=== PATIENT | female | born 1965 | race Caucasian/White ===

== ENCOUNTER 2017-04-29 08:00 | Outpatient (CLI) | payer MEDICAID ==
[2017-04-29 19:08] LABS: BASOPHILS % (AUTO) 0.3 %; EOSINOPHILS # (AUTO) 0.2 10^3/uL (0.0-0.7); EOSINOPHILS % (AUTO) 2.3 %; HGB - HEMOGLOBIN 13.2 g/dL (12.0-16.0); LYMPHOCYTES # (AUTO) 2.2 10^3/uL (1.5-3.5); LYMPHOCYTES % (AUTO) 31.8 %; MEAN CORPUSCULAR HEMOGLOBIN 28.4 pg (27.0-31.0); MEAN CORPUSCULAR HGB CONC 32.5 g/dL (32.0-36.0); MEAN CORPUSCULAR VOLUME 87.5 fL (81.0-99.0); MEAN PLATELET VOLUME 8.3 fL (7.9-10.8); MONOCYTES # (AUTO) 0.5 10^3/uL (0.0-1.0); MONOCYTES % (AUTO) 6.8 %; NEUTROPHILS # (AUTO) 4.1 10^3/uL (1.5-6.6); NEUTROPHILS % (AUTO) 58.8 %; PLT - PLATELET COUNT 273 10^3/uL (130-450); RED BLOOD COUNT 4.65 10^6/uL (4.20-5.40); RED CELL DISTRIBUTION WIDTH 13.6 % (12.0-15.0)
[2017-04-29 19:43] LABS: ALBUMIN 4.1 g/dL (3.2-5.5); ALBUMIN/GLOBULIN RATIO 1.5 (1.0-2.2); ALKALINE PHOSPHATASE 75 IU/L (42-121); ALT ALANINE AMINOTRANSFERASE 16 IU/L (10-60); AST ASPARTATE AMINOTRANSFERASE 16 IU/L (10-42); BILIRUBIN,TOTAL 0.3 mg/dL (0.2-1.0); BUN - BLOOD UREA NITROGEN 12 mg/dL (6-20); CALCIUM 9.7 mg/dL (8.5-10.3); CARBON DIOXIDE - CO2 26 mmol/L (21-32); CHLORIDE 102 mmol/L (101-111); CHOL/HDL RATIO 2.8 (<4.4); CHOLESTEROL 190 mg/dL; CREATININE 0.7 mg/dL (0.4-1.0); GFR - MDRD 89 (>89); GLUCOSE 88 mg/dL (70-100); HDL CHOLESTEROL 68 mg/dL; LDL CHOLESTEROL,CALCULATED 111 mg/dL; LDL/HDL RATIO 1.6 (<4.4); SODIUM 140 mmol/L (135-145); TOTAL PROTEIN 6.8 g/dL (6.7-8.2); VLDL CHOLESTEROL 11 mg/dL
== END 2017-04-29 08:01 | disposition home or self-care (01) ==
LOC: LAB.N 08:00
PROVIDERS: ATTEND Nurse Practitioner Gerontology
DX: Z13.9 Encounter for screening, unspecified (principal)
CPT/HCPCS: 36415; 80053; 80061; 83721; 84443; 85025

== ENCOUNTER 2017-05-25 05:25 | Emergency (ER) | payer MEDICAID ==
--- NOTE | 2017-05-25 06:35 | ED Physician Documentation ---
History of Present Illness - Stated complaint Stated Complaint: R KNEE PAIN - Chief complaint Chief Complaint: Ext Problem - History obtained from History obtained from: Patient - History of Present Illness Timing: How many days ago (5) Improved by: rest Worsened by: movement, weight-bearing - Additonal information Additional information: c/o 5 days of right knee pain. she had been gardening earlier that day, but she does not recall injury. Review of Systems Skin: denies: Rash Musculoskeletal: reports: Joint pain, Pain with weight bearing. 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 - Present Medications Home Medications: Ambulatory Orders Medication Instructions Recorded Confirmed traMADol [Ultram] 50 - 100 mg PO Q4-6H PRN #20 tablet 05/25/17 - Allergies Allergies/Adverse Reactions: Allergies Allergy/AdvReac Type Severity Reaction Status Date / Time No Known Drug Allergies Allergy Verified 05/25/17 05:43 - Social History Does the pt smoke?: Yes Smoking Status: Current every day smoker Does the pt drink ETOH?: No Does the pt have substance abuse?: No - Immunizations Immunizations are current?: Yes - POLST Patient has POLST: No PD ED PE NORMAL - Vitals Vital signs reviewed: Yes - General General: Alert and oriented X 3, No acute distress, Well developed/nourished - Derm Derm: Normal color, Warm and dry, No rash - Extremities Extremities: No deformity, No tenderness to palpate, Normal ROM s pain, No edema , No calf tenderness / cord Results - Vitals Vitals: Oxygen O2 Source Room air PD MEDICAL DECISION MAKING - ED course Complexity details: considered differential, d/w patient ED course: atraumatic right knee pain with unremarkable physical exam. Patient says she has had similar problems with the same knee and has had ultrasound and MRI ( prior to moving to [facility]), without specific diagnosis. She says ultram has worked well on this pain in the past Departure - Departure Disposition: Home, Self Care Clinical Impression: Knee pain, right Qualifiers: Chronicity: acute Qualified Code(s): M25.561 - Pain in right knee Condition: Good Instructions: ED Knee Pain [facility]O Follow-Up: [facility] [Provider Group] [facility] [Provider Group] Prescriptions: traMADol [Ultram] 50 - 100 mg PO Q4-6H PRN #20 tablet PRN Reason: Pain Discharge Date/Time: 05/25/17 07:10
[2017-05-25] MEDS ORDERED: traMADol 50 MG TABLET PO STA (06:57)
[2017-05-25 07:13] VITALS: BP 128/71
== END 2017-05-25 07:10 | disposition home or self-care (01) ==
LOC: ED 05:25
DX: M25.561 Pain in right knee (principal); F17.200 Nicotine dependence, unspecified, uncomplicated
CPT/HCPCS: 99283; A9270

== ENCOUNTER 2017-06-28 16:12 | Emergency (ER) | payer MEDICAID ==
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
[2017-06-28] MEDS ORDERED: traMADol 50 MG TABLET PO STA (16:55)
[2017-06-28 16:59] VITALS: BP 113/61
== END 2017-06-28 17:04 | disposition home or self-care (01) ==
LOC: ED 16:12
DX: M25.561 Pain in right knee (principal); F17.200 Nicotine dependence, unspecified, uncomplicated
CPT/HCPCS: 99283; A9270

== ENCOUNTER 2017-07-31 11:56 | Emergency (ER) | payer MEDICAID ==
--- NOTE | 2017-07-31 12:47 | ED Physician Documentation ---
PD HPI BACK PAIN - Stated complaint Stated Complaint: BILAT LEG PX - Chief complaint Chief Complaint: General - History obtained from History obtained from: Patient - History of Present Illness Timing - onset: How many months ago (1-2 months of pain in right knee and calf. Denies back nor hip pain. Has had some pains in there for years but consistent now. Seen by PCP and arranged therapy and Rx meds. Patient says ROM and muscle use PT makes the pain worse. Not improved with meds Rx.) Timing - details: Gradual onset, Still present, Waxing and waning Location: Other (not really hurting in back. Has pain right posterolateral knee and upper calf.) Quality: Pain, Aching Associated symptoms: No: Fever, Weakness, Numbness Worsened by: Palpation, Other (pain with walking and also had twisting of ankle few weeks ago, which has caused pain in left lower leg/ankle due to changed gait.) Contributing factors: No: Trauma Similar symptoms before: No diagnosis Recently seen: Clinic Review of Systems Constitutional: denies: Fever, Chills, Myalgias Skin: denies: Rash, Lesions Musculoskeletal: denies: Back pain Neurologic: denies: Focal weakness, Numbness PD PAST MEDICAL HISTORY - Past Medical History Past Medical History: Yes - Past Surgical History 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 - Present Medications Home Medications: Ambulatory Orders Medication Instructions Recorded Confirmed Acetaminophen [Tylenol] 650 mg PO TID #60 tab 07/31/17 Tramadol HCl 50 mg PO Q6H PRN #25 tablet 07/31/17 - Allergies Allergies/Adverse Reactions: Allergies Allergy/AdvReac Type Severity Reaction Status Date / Time No Known Drug Allergies Allergy Verified 07/31/17 12:10 - Social History Does the pt smoke?: Yes Smoking Status: Current every day smoker Does the pt drink ETOH?: No Does the pt have substance abuse?: No - Immunizations Immunizations are current?: Yes - POLST Patient has POLST: No PD ED PE NORMAL - Vitals Vital signs reviewed: Yes - General General: Alert and oriented X 3, Well developed/nourished - Neck Neck: Supple, no meningeal sign, No adenopathy - Cardiac Cardiac: RRR, No murmur - Respiratory Respiratory: Clear bilaterally - Abdomen Abdomen: Soft, Non tender - Back Back: No CVA TTP, No spinal TTP - Derm Derm: Normal color, Warm and dry, No rash - Extremities Extremities: No edema, Other (right posterior knee and lateral knee with some tenderness, but no rash nor swelling. ) - Neuro Neuro: Alert and oriented X 3, No motor deficit, No sensory deficit, Normal speech Results - Vitals Vitals: Oxygen O2 Source Room air PD MEDICAL DECISION MAKING - Sepsis Event Vital Signs: Oxygen O2 Source Room air Departure - Departure Disposition: Home, Self Care Clinical Impression: Right leg pain Condition: Stable Record reviewed to determine appropriate education?: Yes Follow-Up: [facility] [Provider Group] Prescriptions: Acetaminophen [Tylenol] 650 mg PO TID #60 tab Tramadol HCl 50 mg PO Q6H PRN #25 tablet PRN Reason: Pain Comments: Tylenol 3 times a day for the pain. Add tramadol 3 times a day if needed for worse pain. Continue with your primary care and the physical therapy. Follow- up with orthopedics regarding another opinion on the knee and leg pain. Discharge Date/Time: 07/31/17 13:32
[2017-07-31] MEDS ORDERED: traMADol 50 MG TABLET PO STA (13:03)
[2017-07-31 13:17] VITALS: BP 115/65
== END 2017-07-31 13:32 | disposition home or self-care (01) ==
LOC: ED 11:56
DX: F17.200 Nicotine dependence, unspecified, uncomplicated (principal); M79.604 Pain in right leg
CPT/HCPCS: 99283; A9270

== ENCOUNTER 2018-06-01 14:39 | Emergency (ER) | payer MEDICAID ==
[2018-06-01 15:13] LABS: HGB - HEMOGLOBIN 13.6 g/dL (12.0-16.0); MEAN CORPUSCULAR HGB CONC 32.7 g/dL (32.0-36.0); MEAN CORPUSCULAR VOLUME 88.7 fL (81.0-99.0); MEAN PLATELET VOLUME 7.5 fL (7.9-10.8); NEUTROPHILS % (AUTO) 79.3 %; PLT - PLATELET COUNT 312 10^3/uL (130-450); RED BLOOD COUNT 4.67 10^6/uL (4.20-5.40); RED CELL DISTRIBUTION WIDTH 12.8 % (12.0-15.0); WHITE BLOOD COUNT 12.6 x10^3/uL (4.8-10.8)
[2018-06-01 15:14] LABS: BASOPHILS # (AUTO) 0.1 10^3/uL (0.0-0.1); BASOPHILS % (AUTO) 0.6 %; EOSINOPHILS # (AUTO) 0.1 10^3/uL (0.0-0.7); EOSINOPHILS % (AUTO) 0.7 %; LYMPHOCYTES # (AUTO) 1.8 10^3/uL (1.5-3.5); LYMPHOCYTES % (AUTO) 14.6 %; MONOCYTES # (AUTO) 0.6 10^3/uL (0.0-1.0); MONOCYTES % (AUTO) 4.8 %
[2018-06-01 15:26] LABS: ALBUMIN 4.1 g/dL (3.2-5.5); ALBUMIN/GLOBULIN RATIO 1.4 (1.0-2.2); BILIRUBIN,TOTAL 0.4 mg/dL (0.2-1.0); CALCIUM 9.3 mg/dL (8.5-10.3); CREATININE 0.6 mg/dL (0.4-1.0); TOTAL PROTEIN 7.1 g/dL (6.7-8.2)
[2018-06-01] MEDS ORDERED: HYDROmorphone 1 MG/ML CARPUJECT IVP STA (15:33)
[2018-06-01] MEDS ORDERED: ONDANSETRON 4 MG/2 ML VIAL IVP STA (15:33)
--- NOTE | 2018-06-01 15:35 | ED Physician Documentation ---
PD HPI CHEST PAIN - Stated complaint Stated Complaint: SOA - Chief complaint Chief Complaint: Resp - History obtained from History obtained from: Patient - History of Present Illness Timing - onset: Today (History is somewhat limited due to histrionic behavior. She suddenly had central and left upper quadrant pain radiating to the chest 2 PM today while gardening. She has a history of appendectomy and cholecystectomy. She smokes marijuana several times a week but not daily.) Review of Systems Ten Systems: 10 systems reviewed and negative Constitutional: denies: Fever, Chills Cardiac: reports: Chest pain / pressure Respiratory: reports: Dyspnea GI: reports: Abdominal Pain. 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 - Present Medications Home Medications: Ambulatory Orders Medication Instructions Recorded Confirmed Acetaminophen [Tylenol] 650 mg PO TID #60 tab 07/31/17 Tramadol HCl 50 mg PO Q6H PRN #25 tablet 07/31/17 - Allergies Allergies/Adverse Reactions: Allergies Allergy/AdvReac Type Severity Reaction Status Date / Time No Known Drug Allergies Allergy Verified 06/01/18 14:47 - Social History Does the pt smoke?: Yes Smoking Status: Current every day smoker Does the pt drink ETOH?: No Does the pt have substance abuse?: Yes Substance Use and Type: Marijuana - Immunizations Immunizations are current?: Yes - POLST Patient has POLST: No PD ED PE NORMAL - Vitals Vital signs reviewed: Yes - General General: Alert and oriented X 3, Other (Hyperventilating with histrionic behavior) - HEENT HEENT: PERRL, EOMI - Neck Neck: Supple, no meningeal sign, No bony TTP - Cardiac Cardiac: RRR, No murmur - Respiratory Respiratory: No respiratory distress, Clear bilaterally - Abdomen Abdomen: Other (Quite tender throughout which she seems distractible from) - Back Back: No CVA TTP, No spinal TTP - Derm Derm: Normal color, Warm and dry - Extremities Extremities: No deformity, No tenderness to palpate - Neuro Neuro: Alert and oriented X 3, Normal speech Results - Vitals Vitals: Vital Signs - 24 hr 06/01/18 06/01/18 06/01/18 14:45 15:30 16:20 Temperature 35.8 C L Heart Rate 82 101 H 85 Respiratory 26 H 22 18 Rate Blood Pressure 101/72 119/85 H 128/112 H O2 Saturation 100 100 97 06/01/18 16:30 Temperature Heart Rate 95 Respiratory 14 Rate Blood Pressure 133/87 H O2 Saturation 98 Oxygen O2 Source Room air - EKG (time done) 1455 Rate: Rate (enter#) (63) Rhythm: NSR [place]: Normal Intervals: Normal [place] QRS: Normal Ischemia: Normal ST segments Computer interpretation: Agree with computer - Labs Labs: Laboratory Tests 06/01/18 06/01/18 06/01/18 15:05 15:05 15:05 WBC 12.6 H RBC 4.67 Hgb 13.6 Hct 41.4 MCV 88.7 MCH 29.0 MCHC 32.7 RDW 12.8 Plt Count 312 MPV 7.5 L Neut # (Auto) 10.0 H Lymph # (Auto) 1.8 [place] # (Auto) 0.6 Eos # (Auto) 0.1 Baso # (Auto) 0.1 Absolute Nucleated RBC 0.00 Nucleated RBC % 0.0 D-Dimer < 200.0 L VBG pH VBG pCO2 VBG pO2 VBG HCO3 VBG Total CO2 VBG O2 Saturation VBG Base Excess Sodium 142 Potassium 3.5 Chloride 106 Carbon Dioxide 27 Anion Gap 9.0 BUN 16 Creatinine 0.6 Estimated GFR (MDRD) 105 Glucose 102 H Calcium 9.3 Total Bilirubin 0.4 AST 44 H ALT 31 Alkaline Phosphatase 81 Troponin I Total Protein 7.1 Albumin 4.1 Globulin 3.0 Albumin/Globulin Ratio 1.4 Lipase 22 Urine Color Urine Clarity Urine pH Ur Specific [place] Urine Protein Urine Glucose (UA) Urine Ketones Urine Occult Blood Urine Nitrite Urine Bilirubin Urine Urobilinogen Ur Leukocyte Esterase Urine RBC Urine WBC Ur Squamous Epith Cells Amorphous Sediment Urine Bacteria Ur Microscopic Review Urine Culture Comments Urine HCG, Qual 06/01/18 06/01/18 06/01/18 15:05 15:40 16:40 WBC RBC Hgb Hct MCV MCH MCHC RDW Plt Count MPV Neut # (Auto) Lymph # (Auto) [place] # (Auto) Eos # (Auto) Baso # (Auto) Absolute Nucleated RBC Nucleated RBC % D-Dimer VBG pH 7.454 H VBG pCO2 35.6 L VBG pO2 30.9 VBG HCO3 24.4 VBG Total CO2 25.5 VBG O2 Saturation 68.7 VBG Base Excess 0.9 Sodium Potassium Chloride Carbon Dioxide Anion Gap BUN Creatinine Estimated GFR (MDRD) Glucose Calcium Total Bilirubin AST ALT Alkaline Phosphatase Troponin I < 0.04 Total Protein Albumin Globulin Albumin/Globulin Ratio Lipase Urine Color YELLOW Urine Clarity HAZY Urine pH 8.0 H Ur Specific [place] 1.015 Urine Protein NEGATIVE Urine Glucose (UA) NEGATIVE Urine Ketones NEGATIVE Urine Occult Blood NEGATIVE Urine Nitrite NEGATIVE Urine Bilirubin NEGATIVE Urine Urobilinogen 0.2 (NORMAL) Ur Leukocyte Esterase NEGATIVE Urine RBC None Seen Urine WBC 0-3 Ur Squamous Epith Cells RARE Squamous Amorphous Sediment Moderate Urine Bacteria None Seen Ur Microscopic Review INDICATED Urine Culture Comments NOT INDICATED Urine HCG, Qual 06/01/18 16:40 WBC RBC Hgb Hct MCV MCH MCHC RDW Plt Count MPV Neut # (Auto) Lymph # (Auto) [place] # (Auto) Eos # (Auto) Baso # (Auto) Absolute Nucleated RBC Nucleated RBC % D-Dimer VBG pH VBG pCO2 VBG pO2 VBG HCO3 VBG Total CO2 VBG O2 Saturation VBG Base Excess Sodium Potassium Chloride Carbon Dioxide Anion Gap BUN Creatinine Estimated GFR (MDRD) Glucose Calcium Total Bilirubin AST ALT Alkaline Phosphatase Troponin I Total Protein Albumin Globulin Albumin/Globulin Ratio Lipase Urine Color Urine Clarity Urine pH Ur Specific [place] 1.015 Urine Protein Urine Glucose (UA) Urine Ketones Urine Occult Blood Urine Nitrite Urine Bilirubin Urine Urobilinogen Ur Leukocyte Esterase Urine RBC Urine WBC Ur Squamous Epith Cells Amorphous Sediment Urine Bacteria Ur Microscopic Review Urine Culture Comments Urine HCG, Qual NEGATIVE - Rads (name of study) CT A/P Radiology: EMP read contemporaneously (Dilated fluid-filled stomach without other acute abnormality) PD MEDICAL DECISION MAKING - ED course ED course: 52-year-old woman presents histrionic with abdominal pain, thorough work-up was undertaken but she improved a lot with medications here and was pain-free by the time of discharge. She did have a dilated stomach and was offered Reglan but prefers to use herbs at home. Departure - Departure Disposition: 01 Home, Self Care Clinical Impression: Abdominal pain Qualifiers: Abdominal location: generalized Qualified Code(s): R10.84 - Generalized abdominal pain Condition: Good Record reviewed to determine appropriate education?: Yes Instructions: ED Abdominal Pain Unkn Cause Comments: Call your doctor to arrange a follow-up appointment, make the next available appointment. In the interim, return anytime if worse or if new symptoms develop.
[2018-06-01 15:57] LABS: VBG PCO2 35.6 mmHg (41-51); VBG PH 7.454 (7.31-7.41)
[2018-06-01 15:58] LABS: VBG BASE EXCESS 0.9 mmol/L (-2 - +2); VBG PO2 30.9 mmHg (25-47); VBG TOTAL CO2 25.5 mmol/L (24-29)
[2018-06-01] MEDS ORDERED: LORazepam 2 MG/ML VIAL IVP STA (16:00)
--- NOTE | 2018-06-01 16:38 | XRAY Report ---
Reason: chest /abd pain Procedure Date: 06/01/2018 Accession Number: [id number] / [id number] Procedure: XR - Chest 1 View X-Ray CPT Code: 51434 FULL RESULT: EXAM: CHEST RADIOGRAPHY EXAM DATE: 06/01/2018 04:04 PM. CLINICAL HISTORY: Chest /abd pain. COMPARISON: Abdomen radiographs 08/13/2006. TECHNIQUE: 1 view. FINDINGS: Cardiac leads overlie the chest. Heart size is normal. Calcified plaques in the thoracic aorta. No consolidation, pleural effusion, or pneumothorax. IMPRESSION: No acute cardiopulmonary findings. RADIA
[2018-06-01 16:54] LABS: BILIRUBIN,URINE NEGATIVE (NEGATIVE); GLUCOSE, URINE (UA) NEGATIVE (NEGATIVE); KETONES,URINE (UA) NEGATIVE (NEGATIVE); LEUKOCYTE ESTERASE, URINE NEGATIVE (NEGATIVE); NITRITE,URINE NEGATIVE (NEGATIVE); OCCULT BLOOD,URINE NEGATIVE (NEGATIVE); PROTEIN,URINE NEGATIVE (NEGATIVE); UROBILINOGEN,URINE 0.2 (NORMAL) E.U./dL (NORMAL)
[2018-06-01 17:01] LABS: CLARITY,URINE HAZY (CLEAR); HCG UR QUAL NEGATIVE
[2018-06-01 17:07] LABS: AMORPHOUS SEDIMENT,UR Moderate /LPF; BACTERIA,URINE None Seen /HPF (None Seen); RBC,URINE None Seen /HPF (0-5); SQUAMOUS EPITHELIAL CELL,UR RARE Squamous (<= Few)
[2018-06-01] MEDS ORDERED: IOVERSOL 320 100 ML VIAL IVP ONE ×2 (17:08→18:49)
--- NOTE | 2018-06-01 17:45 | CT Report ---
Reason: IV only, diffuse abd pain Procedure Date: 06/01/2018 Accession Number: [id number] / [id number] Procedure: CT - Abdomen/Pelvis W CPT Code: FULL RESULT: EXAM: CT ABDOMEN AND PELVIS EXAM DATE: 06/01/2018 05:23 PM. CLINICAL HISTORY: IV only, diffuse abd pain. COMPARISONS: ABD/PEL 08/13/2006 4:31 PM. TECHNIQUE: Routine helical CT imaging was performed through the abdomen and pelvis. IV contrast: ISOVUE 300 100mL. Enteric contrast: No. Reconstructions: Coronal and sagittal. In accordance with CT protocol optimization, one or more of the following dose reduction techniques were utilized for this exam: automated exposure control, adjustment of mA and/or KV based on patient size, or use of iterative reconstructive technique. FINDINGS: Lung Bases: Unremarkable. Liver: The liver is normal in size and contour. There is a 7 mm hypodensity in the inferior right lobe of the liver which is too small to characterize. Liver vessels are patent. Gallbladder/Bile Ducts: Gallbladder surgically absent. Spleen: Normal. Pancreas: Normal. Adrenal Glands: Normal. Kidneys: Normal. No masses or hydronephrosis. Peritoneal Cavity/Bowel: Stomach is mildly distended with fluid. The small bowel is normal in caliber without a transition zone. The colon is nondilated. No free air or pneumatosis. No abscess. Pelvic Organs: Uterus is anteverted. Urinary bladder appears unremarkable. Vasculature: No aneurysms or other significant abnormality. Bones: No significant abnormality. Other: None. IMPRESSION: 1. Stomach is mildly dilated with fluid. The small bowel and colon appear unremarkable. 2. No other localizing inflammatory process or CT finding to explain abdominal pain. 3. Previous cholecystectomy. RADIA
[2018-06-01] MEDS ORDERED: METOCLOPRAMIDE 10 MG/2 ML VIAL IVP STA (17:49)
[2018-06-01 18:09] VITALS: BP 132/78
== END 2018-06-01 18:12 | disposition home or self-care (01) ==
LOC: ED 14:39
DX: R10.84 Generalized abdominal pain (principal); F17.200 Nicotine dependence, unspecified, uncomplicated
CPT/HCPCS: 36415; 71045; 74177; 80053; 81001; 81025; 82803; 83690; 84484; 85025; 85379; 93005; 96374; 96375; 99283; J1170; Q9967; 81003; 87086

== ENCOUNTER 2020-09-06 15:16 | Emergency (ER) | payer MEDICAID ==
[2020-09-06] MEDS ORDERED: ACETAMINOPHEN 325 MG TABLET PO STA (15:41)
[2020-09-06] MEDS ORDERED: SODIUM CHLORIDE 0.9% 1,000 ML IV STA (15:41)
--- NOTE | 2020-09-06 15:59 | ED Physician Documentation ---
History of Present Illness - Stated complaint Stated Complaint: WEAKNESS, BACK PX - Chief complaint Chief Complaint: Abd Pain - History obtained from History obtained from: Patient - Additonal information Additional information: Patient comes emergency department chief complaint of body aches, right-sided abdominal pain, fever, chills, shortness of breath, right ear pain, and general malaise. She states it all started yesterday. She denies any sick contacts. And she states that it feels a lot like when she had mono when she was 14. Patient has had a sore throat and a sore mandible, especially on the right. Patient states she is not immunized for Covid. She has not had any known Covid exposures. Review of Systems Ten Systems: 10 systems reviewed and negative Constitutional: reports: Fever, Chills Eyes: reports: Reviewed and negative Ears: reports: Reviewed and negative Nose: reports: Reviewed and negative Throat: reports: Sore throat Cardiac: reports: Reviewed and negative Respiratory: reports: Dyspnea. denies: Cough GI: reports: Abdominal Pain. denies: Nausea, Vomiting : reports: Reviewed and negative Skin: reports: Reviewed and negative Musculoskeletal: reports: Reviewed and negative Neurologic: reports: Headache Psychiatric: reports: Reviewed and negative Endocrine: reports: Reviewed and negative Immunocompromised: reports: Reviewed and negative PD PAST MEDICAL HISTORY - Past Medical History Past Medical History: No Cardiovascular: None Respiratory: None Neuro: None Endocrine/Autoimmune: None GI: None PHYSICAL THERAPY TECHNICIAN: None : None HEENT: None Psych: None Musculoskeletal: None Derm: None - Past Surgical History Past Surgical History: Yes /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: No Does the pt have substance abuse?: Yes - Immunizations Immunizations are current?: Yes - POLST Patient has POLST: No PD ED PE NORMAL - Vitals Vital signs reviewed: Yes - General General: Alert and oriented X 3, No acute distress - HEENT HEENT: Atraumatic, PERRL, EOMI, Ears normal, Pharynx benign - Neck Neck: Supple, no meningeal sign - Cardiac Cardiac: No murmur, Strong equal pulses, Other (Regular rate, tachycardic.) - Respiratory Respiratory: No respiratory distress, Clear bilaterally - Abdomen Abdomen: Soft, Non tender, Non distended - Back Back: No CVA TTP - Derm Derm: Normal color, Warm and dry, No rash - Extremities Extremities: No deformity, No edema, No calf tenderness / cord - Neuro Neuro: Alert and oriented X 3, factory clerk 2-12 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, Normal speech - Psych Psych: Normal mood, Normal affect Results - Vitals Vitals: Vital Signs - 24 hr 09/06/20 09/06/20 15:23 16:26 Temperature 38.1 C H Heart Rate 120 H 104 H Respiratory 18 17 Rate Blood Pressure 139/92 H 139/64 H O2 Saturation 94 95 Oxygen O2 Source Room air - Labs Labs: Laboratory Tests 09/06/20 09/06/20 09/06/20 16:03 16:03 16:03 WBC 9.6 RBC 4.43 Hgb 13.1 Hct 39.7 MCV 89.6 MCH 29.6 MCHC 33.0 RDW 12.1 Plt Count 197 MPV 9.7 Neut # (Auto) 7.9 H Lymph # (Auto) 0.6 L [place] # (Auto) 1.0 Eos # (Auto) 0.1 Baso # (Auto) 0.0 Absolute Nucleated RBC 0.00 Nucleated RBC % 0.0 Sodium 133 L Potassium 3.5 Chloride 98 L Carbon Dioxide 26 Anion Gap 9.0 BUN 7 Creatinine 0.9 Estimated GFR (MDRD) 65 L Glucose 133 H Lactic Acid 1.5 Calcium 9.1 Total Bilirubin 0.7 AST 15 ALT 17 Alkaline Phosphatase 76 Total Protein 7.2 Albumin 3.9 Globulin 3.3 Albumin/Globulin Ratio 1.2 Lipase 19 L Urine Color Urine Clarity Urine pH Ur Specific [place] Urine Protein Urine Glucose (UA) Urine Ketones Urine Occult Blood Urine Nitrite Urine Bilirubin Urine Urobilinogen Ur Leukocyte Esterase Urine RBC Urine WBC Ur Squamous Epith Cells Urine Bacteria Ur Microscopic Review Urine Culture Comments Nasal Adenovirus (PCR) Nasal B. parapertussis DNA (PCR) Nasal Coronavir 229E PCR Nasal Coronavir HKU1 PCR Nasal Coronavir NL63 PCR Nasal Coronavir OC43 PCR Nasal Enterovir/Rhinovir PCR Nasal Influenza B PCR Nasal Influenza A PCR Nasal Parainfluen 1 PCR Nasal Parainfluen 2 PCR Nasal Parainfluen 3 PCR Nasal Parainfluen 4 PCR Nasal RSV (PCR) Nasal B.pertussis DNA PCR Nasal C.pneumoniae (PCR) Sánchez Human Metapneumo PCR Nasal M.pneumoniae (PCR) Nasal SARS-CoV-2 (PCR) Infectious [place] Assay 09/06/20 09/06/20 09/06/20 16:03 16:20 16:20 WBC RBC Hgb Hct MCV MCH MCHC RDW Plt Count MPV Neut # (Auto) Lymph # (Auto) [place] # (Auto) Eos # (Auto) Baso # (Auto) Absolute Nucleated RBC Nucleated RBC % Sodium Potassium Chloride Carbon Dioxide Anion Gap BUN Creatinine Estimated GFR (MDRD) Glucose Lactic Acid Calcium Total Bilirubin AST ALT Alkaline Phosphatase Total Protein Albumin Globulin Albumin/Globulin Ratio Lipase Urine Color YELLOW Urine Clarity HAZY Urine pH 6.0 Ur Specific [place] <=1.005 Urine Protein 30 H Urine Glucose (UA) NEGATIVE Urine Ketones NEGATIVE Urine Occult Blood LARGE H Urine Nitrite POSITIVE H Urine Bilirubin NEGATIVE Urine Urobilinogen 0.2 (NORMAL) Ur Leukocyte Esterase SMALL H Urine RBC 6-10 H Urine WBC 11-25 H Ur Squamous Epith Cells FEW Squamous Urine Bacteria Moderate H Ur Microscopic Review INDICATED Urine Culture Comments INDICATED Nasal Adenovirus (PCR) NOT DETECTED Nasal B. parapertussis DNA (PCR) NOT DETECTED Nasal Coronavir 229E PCR NOT DETECTED Nasal Coronavir HKU1 PCR NOT DETECTED Nasal Coronavir NL63 PCR NOT DETECTED Nasal Coronavir OC43 PCR NOT DETECTED Nasal Enterovir/Rhinovir PCR NOT DETECTED Nasal Influenza B PCR NOT DETECTED Nasal Influenza A PCR NOT DETECTED Nasal Parainfluen 1 PCR NOT DETECTED Nasal Parainfluen 2 PCR NOT DETECTED Nasal Parainfluen 3 PCR NOT DETECTED Nasal Parainfluen 4 PCR NOT DETECTED Nasal RSV (PCR) NOT DETECTED Nasal B.pertussis DNA PCR NOT DETECTED Nasal C.pneumoniae (PCR) NOT DETECTED Sán[place] Human Metapneumo PCR NOT DETECTED Nasal M.pneumoniae (PCR) NOT DETECTED Nasal SARS-CoV-2 (PCR) NOT DETECTED Infectious [place] Assay NEGATIVE PD MEDICAL DECISION MAKING - ED course Complexity details: reviewed results, re-evaluated patient, considered differential, d/w patient ED course: Patient was found to have a temperature of 102.4 orally in the emergency department heart rate in the 1 teens to 120s. This was appropriate for her temperature. She had rather broad symptoms including a demonstrated fever, and was worked up with labs, urinalysis, chest x-ray, respiratory PCR, and blood cultures, as well as Monospot. She was given Tylenol and IV fluids in the emergency department. The patient's laboratory studies were unremarkable, including a normal white blood cell count and lactate. Her respiratory PCR was normal, but urinalysis was positive for infection. This was not surprising, given the pain over the right flank and CVA. The patient's mono test was negative. She was given ciprofloxacin in the emergency department and Given a prescription for the same at home. We have discussed the importance of hydration and we have also discussed fever control at home. Patient is feeling better and we have discussed the usual indications for return. Departure - Departure Disposition: 01 Home, Self Care Clinical Impression: Pyelonephritis Condition: Stable Instructions: ED Kidney Infec Female Prescriptions: Ciprofloxacin HCl 1 tablet PO BID 14 Days #28 tablet Ondansetron Odt [Zofran] 4 mg TL Q6H PRN #10 tablet PRN Reason: Nausea / Vomiting Comments: Your blood work looks good and your Covid and mono tests are negative. Your urine is strongly positive for infection, which is not surprising, given your right flank and back pain and fever. You have been treated with IV fluids and Tylenol for your fever, as well as first dose of antibiotics for your kidney infection. Please continue the antibiotic twice daily until gone. Drink plenty of fluids and use ibuprofen and Tylenol to help control fevers. It will likely be at least several days before you are feeling much better but you will begin to improve.
[2020-09-06 16:17] LABS: BASOPHILS % (AUTO) 0.3 %; EOSINOPHILS # (AUTO) 0.1 10^3/uL (0.0-0.7); EOSINOPHILS % (AUTO) 0.8 %; HCT - HEMATOCRIT 39.7 % (37.0-47.0); HGB - HEMOGLOBIN 13.1 g/dL (12.0-16.0); LYMPHOCYTES # (AUTO) 0.6 10^3/uL (1.5-3.5); LYMPHOCYTES % (AUTO) 6.6 %; MEAN CORPUSCULAR HEMOGLOBIN 29.6 pg (27.0-31.0); MEAN CORPUSCULAR VOLUME 89.6 fL (81.0-99.0); MEAN PLATELET VOLUME 9.7 fL (7.9-10.8); MONOCYTES % (AUTO) 9.9 %; NEUTROPHILS # (AUTO) 7.9 10^3/uL (1.5-6.6); PLT - PLATELET COUNT 197 10^3/uL (130-450); RED BLOOD COUNT 4.43 10^6/uL (4.20-5.40); RED CELL DISTRIBUTION WIDTH 12.1 % (12.0-15.0); WHITE BLOOD COUNT 9.6 x10^3/uL (4.8-10.8)
[2020-09-06 16:18] LABS: INFECTIOUS MONONUCLEOSIS NEGATIVE (Negative)
[2020-09-06 16:23] LABS: ALBUMIN 3.9 g/dL (3.2-5.5); ALBUMIN/GLOBULIN RATIO 1.2 (1.0-2.2); BILIRUBIN,TOTAL 0.7 mg/dL (0.2-1.0); CALCIUM 9.1 mg/dL (8.5-10.3); CREATININE 0.9 mg/dL (0.4-1.0); POTASSIUM 3.5 mmol/L (3.5-5.0); TOTAL PROTEIN 7.2 g/dL (6.7-8.2)
[2020-09-06 16:27] VITALS: BP 139/64
[2020-09-06 16:37] LABS: BILIRUBIN,URINE NEGATIVE (NEGATIVE); GLUCOSE, URINE (UA) NEGATIVE (NEGATIVE); KETONES,URINE (UA) NEGATIVE (NEGATIVE); LEUKOCYTE ESTERASE, URINE SMALL (NEGATIVE); NITRITE,URINE POSITIVE (NEGATIVE); OCCULT BLOOD,URINE LARGE (NEGATIVE); PROTEIN,URINE 30 mg/dL (NEGATIVE); UROBILINOGEN,URINE 0.2 (NORMAL) E.U./dL (NORMAL)
[2020-09-06 16:48] LABS: BACTERIA,URINE Moderate /HPF (None Seen); CLARITY,URINE HAZY (CLEAR); SQUAMOUS EPITHELIAL CELL,UR FEW Squamous (<= Few)
[2020-09-06] MEDS ORDERED: CIPROFLOXACIN 250 MG TABLET PO STA (17:08)
[2020-09-06 17:31] LABS: B. PARAPERTUSSIS- RESP PCR PAN NOT DETECTED; B. PERTUSSIS- RESP PCR PANEL NOT DETECTED; C. PNEUMONIAE- RESP PCR PANEL NOT DETECTED; CORONAVIRUS 229E-RESP PCR NOT DETECTED; CORONAVIRUS HKU1-RESP PCR NOT DETECTED; CORONAVIRUS NL63-RESP PCR NOT DETECTED; CORONAVIRUS OC43-RESP PCR NOT DETECTED; HUMAN METAPNEUMOVIRUS NOT DETECTED; INFLUENZA A- RESP PCR PANEL NOT DETECTED; INFLUENZA B - RESP PCR PANEL NOT DETECTED; M. PNEUMONIAE- RESP PCR PANEL NOT DETECTED; PARAINFLUENZA VIRUS 1 NOT DETECTED; PARAINFLUENZA VIRUS 2 NOT DETECTED; PARAINFLUENZA VIRUS 3 NOT DETECTED; PARAINFLUENZA VIRUS 4 NOT DETECTED; RHINOVIRUS/ENTEROVIRUS NOT DETECTED; RSV- RESP PCR PANEL NOT DETECTED; SARS-CoV-2 -RESP PCR PANEL NOT DETECTED
--- NOTE | 2020-09-06 18:05 | XRAY Report ---
PROCEDURE: Chest 1 View X-Ray INDICATIONS: chest pain TECHNIQUE: One view of the chest was acquired. COMPARISON: 06/01/18 FINDINGS: Surgical changes and devices: None. Lungs and pleura: No pleural effusions or pneumothorax. Lungs are clear. Mediastinum: Mediastinal contours appear normal. Heart size is normal. Bones and chest wall: No suspicious bony lesions. Overlying soft tissues appear unremarkable. IMPRESSION: No acute cardiopulmonary abnormality Reviewed by: Remy Pitts on 09/06/2020 6:03 PM PDT Approved by: Remy Pitts on 09/06/2020 6:03 PM PDT Station ID: [id number]
== END 2020-09-06 18:15 | disposition home or self-care (01) ==
LOC: ED 15:16
DX: N12 Tubulo-interstitial nephritis, not specified as acute or chronic (principal); R06.02 Shortness of breath; R53.81 Other malaise; Z20.822 Contact with and (suspected) exposure to COVID-19; F17.200 Nicotine dependence, unspecified, uncomplicated
CPT/HCPCS: 0202U; 36415; 71045; 80053; 81001; 83605; 83690; 85025; 86308; 87040; 87086; 87150; 87181; 96360; 99284; A9270; 81003

== ENCOUNTER 2020-09-07 16:52 | Inpatient (IN) | payer MEDICAID ==
[2020-09-07] MEDS ORDERED: HYDROmorphone 1 MG/ML CARPUJECT IVP STA (17:23)
[2020-09-07] MEDS ORDERED: cefTRIAXone 2 GM in SODIUM CHLORIDE 0.9% MINIBAG 100 ML IV STA (17:23)
--- NOTE | 2020-09-07 17:25 | ED Physician Documentation ---
History of Present Illness - Stated complaint Stated Complaint: ABD PX - Chief complaint Chief Complaint: Heent - History obtained from History obtained from: Patient - Additonal information Additional information: Otherwise healthy 55-year-old woman was seen yesterday with complaints of flank pain, body aches, right ear pain. She was found to have a white count of 9.6, a temperature of 38.1, normal lactate at 1.5, and infected appearing urine. Covid test and mono test were negative. She was administered Cipro and sent home. She has had a total of 3 doses of Cipro. She continues to be sick with worsening abdominal pain and ear pain. But was called back because 2 out of 2 blood cultures are preliminarily positive for E. coli, sensitivities are pending. 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: No Does the pt have substance abuse?: Yes - Immunizations Immunizations are current?: Yes - POLST Patient has POLST: No PD ED PE NORMAL - Vitals Vital signs reviewed: Yes - General General: Alert and oriented X 3 (She appears uncomfortable and is clutching the right ear.) - HEENT HEENT: Other (Severe right otitis media) - Neck Neck: Supple, no meningeal sign, No bony TTP - Cardiac Cardiac: RRR, No murmur - Respiratory Respiratory: No respiratory distress, Clear bilaterally - Abdomen Abdomen: Normal bowel sounds, Soft, Other (Mild lower abdominal tenderness without guarding or rebound) - Back Back: No CVA TTP - Derm Derm: Normal color, Warm and dry - Extremities Extremities: No edema, No calf tenderness / cord - Neuro Neuro: Alert and oriented X 3, Normal speech Results - Vitals Vitals: Vital Signs - 24 hr 09/07/20 09/07/20 17:08 18:43 Temperature 38.8 C H Heart Rate 111 H 104 H Respiratory 16 16 Rate Blood Pressure 112/60 133/67 H O2 Saturation 99 99 Oxygen O2 Source Room air - Labs Labs: Laboratory Tests 09/07/20 09/07/20 09/07/20 17:27 17:27 17:27 WBC 6.3 RBC 4.50 Hgb 13.5 Hct 41.1 MCV 91.3 MCH 30.0 MCHC 32.8 RDW 11.9 L Plt Count 170 MPV 9.5 Neut # (Auto) 4.8 Lymph # (Auto) 0.8 L [place] # (Auto) 0.6 Eos # (Auto) 0.0 Baso # (Auto) 0.0 Absolute Nucleated RBC 0.00 Band Neuts % (Manual) Not Reportable Abnorm Lymph % (Manual) Not Reportable Nucleated RBC % 0.0 Neutrophils # (Manual) Not Reportable Lymphocytes # (Manual) Not Reportable Monocytes # (Manual) Not Reportable Eosinophils # (Manual) Not Reportable Basophils # (Manual) Not Reportable Differential Comment MANUAL=AUTO DIFF Platelet Estimate NORMAL (130-450,000) Platelet Morphology NORMAL APPEARANCE RBC Morph Micro Appear NORMAL APPEARANCE Sodium 136 Potassium 3.7 Chloride 98 L Carbon Dioxide 28 Anion Gap 10.0 BUN 7 Creatinine 0.9 Estimated GFR (MDRD) 65 L Glucose 126 H Lactic Acid 1.2 Calcium 9.6 Total Bilirubin 0.4 AST 23 ALT 27 Alkaline Phosphatase 85 Total Protein 7.2 Albumin 3.6 Globulin 3.6 Albumin/Globulin Ratio 1.0 PD MEDICAL DECISION MAKING - ED course ED course: CT KUB: IMPRESSION: 1. Enlargement, mild hydronephrosis, and perinephric inflammation compatible with right-sided pyelonephritis. 2. No obstructing right-sided calcification. 3. Renal phlegmon or abscess cannot be excluded without the use of IV contrast. 4. Mild hepatomegaly and hepatic steatosis. 5. Mild groundglass opacity at both lung bases. This may indicate viral pneumonitis or atelectasis. Correlate clinically. 55-year-old woman who is being treated for pyelonephritis is failed outpatient treatment and has 2 out of 2 blood cultures positive for E. coli. She is administered Rocephin IV here. Labs do not look too bad. CT done to rule out obstruction and there is none. Note made I did not order a Covid test as she had a negative Covid test here yesterday. Case discussed with Dr. Reich at 7:06 PM and she will admit. Departure - Departure Disposition: 66 [facility] DC/Xfer Clinical Impression: Sepsis, Pyelonephritis, ROM (right otitis media) Condition: Serious
[2020-09-07 17:34] LABS: BASOPHILS % (AUTO) 0.3 %; EOSINOPHILS % (AUTO) 0.3 %; HCT - HEMATOCRIT 41.1 % (37.0-47.0); HGB - HEMOGLOBIN 13.5 g/dL (12.0-16.0); LYMPHOCYTES # (AUTO) 0.8 10^3/uL (1.5-3.5); LYMPHOCYTES % (AUTO) 12.3 %; MEAN CORPUSCULAR HGB CONC 32.8 g/dL (32.0-36.0); MEAN CORPUSCULAR VOLUME 91.3 fL (81.0-99.0); MEAN PLATELET VOLUME 9.5 fL (7.9-10.8); MONOCYTES # (AUTO) 0.6 10^3/uL (0.0-1.0); MONOCYTES % (AUTO) 10.2 %; NEUTROPHILS # (AUTO) 4.8 10^3/uL (1.5-6.6); NEUTROPHILS % (AUTO) 76.4 %; PLT - PLATELET COUNT 170 10^3/uL (130-450); RED CELL DISTRIBUTION WIDTH 11.9 % (12.0-15.0); WHITE BLOOD COUNT 6.3 x10^3/uL (4.8-10.8)
[2020-09-07 17:46] LABS: ALBUMIN 3.6 g/dL (3.2-5.5); BILIRUBIN,TOTAL 0.4 mg/dL (0.2-1.0); CALCIUM 9.6 mg/dL (8.5-10.3); CREATININE 0.9 mg/dL (0.4-1.0); POTASSIUM 3.7 mmol/L (3.5-5.0); TOTAL PROTEIN 7.2 g/dL (6.7-8.2)
--- NOTE | 2020-09-07 18:14 | CT Report ---
PROCEDURE: Abdomen/Pelvis WO INDICATIONS: fever, pyelo TECHNIQUE: Noncontrast 5 mm thick sections acquired from the diaphragms to the symphysis. 5 mm coronal and sagi ttal reformats were then performed. For radiation dose reduction, the following was used: automated exposure control, adjustment of mA and/or kV according to patient size. COMPARISON: 06/01/2018 FINDINGS: Image quality: Excellent. ABDOMEN: Lung bases: Mild groundglass opacity at both lung bases. No dense consolidations or effusions.. Hear t size is normal. Solid organs: The right kidney is slightly enlarged compared to the left and there is mild hydroneph rosis and moderate perinephric inflammation, particularly along the inferior pole. There is thickenin g of the pararenal fascia. There is no hydroureter or ureteral calcifications. The left kidney and ur eter appear normal. The liver is elongated measuring 20.8 cm in length. The spleen size is normal. The gallbladder surgic ally absent. Unenhanced appearance of the pancreas and adrenal glands is normal. Peritoneum and bowel: Unenhanced bowel loops demonstrate normal wall thickness and caliber. The alcides endix is not visible. No free fluid or air. Nodes and vessels: No retroperitoneal or mesenteric adenopathy by size criteria. Aorta and inferior vena cava are normal in caliber. Miscellaneous: No ventral hernias. PELVIS: Genitourinary: Bladder wall thickness is normal. Unenhanced appearance of the uterus and ovaries is normal. No suspicious adnexal masses. Miscellaneous: No inguinal hernias or adenopathy. Bones: No suspicious bony lesions. Severe disc degeneration at L5-S1 level. No vertebral body compre ssion fractures. IMPRESSION: 1. Enlargement, mild hydronephrosis, and perinephric inflammation compatible with right-sided pyelone phritis. 2. No obstructing right-sided calcification. 3. Renal phlegmon or abscess cannot be excluded without the use of IV contrast. 4. Mild hepatomegaly and hepatic steatosis. 5. Mild groundglass opacity at both lung bases. This may indicate viral pneumonitis or atelectasis. C orrelate clinically. Reviewed by: Destiney Conway MD on 09/07/2020 6:12 PM PDT Approved by: Destiney Conway MD on 09/07/2020 6:12 PM PDT Station ID: [id number]
[2020-09-07 18:31] LABS: DIFFERENTIAL COMMENT MANUAL=AUTO DIFF; PLATELET ESTIMATE, MANUAL NORMAL (130-450,000) (NORMAL); PLATELET MORPHOLOGY NORMAL APPEARANCE (NORMAL); RBC MORPHOLOGY (MULTIPLE) NORMAL APPEARANCE (NORMAL)
--- NOTE | 2020-09-07 19:32 | HISTORY & PHYSICAL EXAMINATION ---
Chief Complaint - Chief Complaint Chief Complaint: Fever, flank pain, R ear pain, called back d/t (+) blood cx from yesterday History of Present Illness - Admitted From Admitted From:: ED - History Obtained From History obtained from: ED provider and the patient - History of Present Illness HPI Comment/Other: This is a relatively healthy 55-year-old white female, was on no prescription meds, who came to the ED yesterday with complaints of fever, body aches and right ear pain. 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 Work-up in the ED yesterday showed a fever, a normal white blood count and normal lactic acid level, but she had bacteriuria and yadiel tis media diagnosed. She was discharged to take Cipro. She underwent a Covid test which was negative yesterday and Mononucleosis test was neg yesterday. Today her blood cultures have turned positive, 2 out of 2 and have been identified as E. coli. The urine cx taken yesterday is also growing E coli. She was called to come back in. She still has a fever and actually felt worse overall and with worse ear pain, new RLQ and R flank pain. Today, her WBC and Lactic acid levels are not elevated. She underwent CT of the abdomen to evaluate for pyelonephritis or stone/obstruction and this did show right-sided pyelonephritis. She has no stones or hydronephrosis. The ED provider confirmed she has R-sided otitis media. She is being admitted for management of sepsis with elevated white blood count, tachycardia, persistent fever with a urinary source causing bacteremia, and to also treat her painful otitis media. History - Past Medical History Cardiovascular: reports: None Respiratory: reports: None Neuro: reports: None Endocrine/Autoimmune: reports: None GI: reports: None PHOTOGRAPHER NEWS: reports: None : reports: None HEENT: reports: Other (Ear infections since infancy) Psych: reports: None Musculoskeletal: reports: None Derm: reports: None MRSA Hx?: No - Past Surgical History /PHOTOGRAPHER NEWS: reports: section - Family & Social History Family History: Mother: Alive and Well, Other family: (2 children have . 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 She does not drive a car but has a motorcycle license and drives a motorcycle. She smokes 2 cigars a day. She used to smoke cigarettes, stopped cigarettes 10 years ago. She drinks no alcohol. She did have a past history of marijuuana use, no current use. - Substance History Use: Uses substance without health or social issues: Tobacco Tobacco Details: Other (Cigar use) - POLST Patient has POLST: No Meds/Allgy - Home Medications Home Medications: Ambulatory Orders Medication Instructions Recorded Confirmed Ciprofloxacin HCl 1 tablet PO BID 14 Days #28 tablet 09/06/20 09/07/20 Acetaminophen [Tylenol] 650 mg PO TID PRN 09/07/20 09/07/20 Ibuprofen [Motrin] 600 mg PO Q6H PRN 09/07/20 09/07/20 - Allergies Allergies/Adverse Reactions: Allergies Allergy/AdvReac Type Severity Reaction Status Date / Time No Known Drug Allergies Allergy Verified 09/06/20 15:27 Review of Systems - Constitutional Constitutional: reports: Fatigue, Fever, Malaise, Weakness - Ears, Nose & Throat Ears, Nose & Throat: reports: Ear pain (Right sided, severe pain) - Gastrointestinal Gastrointestinal: reports: Abdominal pain (and slight R flank pain) - All Other Systems All Other Systems: reports: Reviewed and negative Exam - Vital Signs Reviewed Vital Signs: Yes Vital Signs: Vital Signs x48h Temp Pulse Resp BP Pulse Ox 09/07/20 19:19 37.3 C 101 H 15 129/68 98 09/07/20 18:43 104 H 16 133/67 H 99 09/07/20 17:08 38.8 C H 111 H 16 112/60 99 - Physical Exam General Appearance: positive: Moderate distress (She is holding a warming pad to her right ear and trying not to move) Eyes Bilateral: positive: Normal inspection, EOMI, No lid inflammation, Conjunctivae nml ENT: positive: Dry mucous membranes Neck: positive: Nml inspection, Thyroid nml, No JVD Respiratory: positive: No respiratory distress Cardiovascular: positive: Regular rate & rhythm, No murmur Abdomen: positive: Non-tender (No guarding or rebound), Nml bowel sounds, No distention Skin: positive: Warm, Dry Extremities: positive: Non-tender, Nml appearance, No pedal edema Neurologic/Psychiatric: positive: Oriented x3 (Non-focal) Sepsis Event Note (H) - Evaluation Current Stage of Sepsis: Sepsis Possible source of Sepsis: positive: Genitourinary - Sepsis Criteria Sepsis Criteria: Recorded Temperature greater than 38.3C or Less than 36C, Recorded Heart Rate greater than 90 bpm Conclusion/Plan - Problem List (1) Sepsis Conclusion/Plan: She has a cmplicated UTI which is caused bacteremia. Her lactic acid is normal but other findings are worse than on yesterday's labs Continue with IV fluids at 30 mils per keg for hydration. In the ED, blood cx have been repeated today. Continue with IV ceftriaxone to treat the UTI and bacteremia. Follow CBC daily. Qualifiers: Sepsis type: Escherichia coli (2) Pyelonephritis Conclusion/Plan: She has a complicated UTI which has caused pyelonephritis and bacteremia. Continue with IV antibiotics as described above. When there is clinical improvement, will change to p.o. antibiotics Await blood and urine culture Sensitivities (3) E coli bacteremia Conclusion/Plan: Continue with IV antibiotics of Ceftriaxone as described above. When there is clinical improvement, will change to p.o. antibiotics Await blood and urine culture Sensitivities Total duration of treatment will be 5 to 14 days depending on her clinical response (4) ROM (right otitis media) Conclusion/Plan: Ceftriaxone iv dosed at 2 g/day for 3 days is an adequate treatment course. Will order meds for pain control. - Lab Results Fish Bones: 09/07/20 17:27 09/07/20 17:27 - Diagnostic Imaging Results Diagnostic Imaging Results: positive: Prelim report reviewed
[2020-09-07] MEDS ORDERED: ACETAMINOPHEN 325 MG TABLET PO PRN (19:38)
[2020-09-07] MEDS ORDERED: HYDROcod/ACETAM 10 MG/325 MG TABLET PO PRN (19:38)
[2020-09-07] MEDS ORDERED: ONDANSETRON 4 MG/2 ML VIAL IVP PRN (19:38)
[2020-09-07 20:37] LABS: BILIRUBIN,URINE NEGATIVE (NEGATIVE); GLUCOSE, URINE (UA) NEGATIVE (NEGATIVE); KETONES,URINE (UA) NEGATIVE (NEGATIVE); LEUKOCYTE ESTERASE, URINE TRACE (NEGATIVE); NITRITE,URINE NEGATIVE (NEGATIVE); OCCULT BLOOD,URINE MODERATE (NEGATIVE); PROTEIN,URINE 100 mg/dL (NEGATIVE); UROBILINOGEN,URINE 0.2 (NORMAL) E.U./dL (NORMAL)
[2020-09-07 20:40] LABS: CLARITY,URINE HAZY (CLEAR)
[2020-09-07 20:48] LABS: BACTERIA,URINE Many /HPF (None Seen); SQUAMOUS EPITHELIAL CELL,UR FEW Squamous (<= Few)
[2020-09-07 21:17] LABS: B. PARAPERTUSSIS- RESP PCR PAN NOT DETECTED; B. PERTUSSIS- RESP PCR PANEL NOT DETECTED; C. PNEUMONIAE- RESP PCR PANEL NOT DETECTED; CORONAVIRUS 229E-RESP PCR NOT DETECTED; CORONAVIRUS HKU1-RESP PCR NOT DETECTED; CORONAVIRUS NL63-RESP PCR NOT DETECTED; CORONAVIRUS OC43-RESP PCR NOT DETECTED; HUMAN METAPNEUMOVIRUS NOT DETECTED; INFLUENZA A- RESP PCR PANEL NOT DETECTED; INFLUENZA B - RESP PCR PANEL NOT DETECTED; M. PNEUMONIAE- RESP PCR PANEL NOT DETECTED; PARAINFLUENZA VIRUS 1 NOT DETECTED; PARAINFLUENZA VIRUS 2 NOT DETECTED; PARAINFLUENZA VIRUS 3 NOT DETECTED; PARAINFLUENZA VIRUS 4 NOT DETECTED; RHINOVIRUS/ENTEROVIRUS NOT DETECTED; RSV- RESP PCR PANEL NOT DETECTED; SARS-CoV-2 -RESP PCR PANEL NOT DETECTED
[2020-09-07] MEDS ORDERED: THIAMINE 100 MG/1 ML 2 ML MDV ONE (21:23)
[2020-09-07] MEDS ORDERED: MAGNESIUM SULFATE 1 GM/2 ML VIAL ONE (21:23)
[2020-09-07] MEDS: MORPHINE 2 MG/ML CARPUJECT IVP PRN (21:24)
[2020-09-07] MEDS: SODIUM CHLORIDE FLUSH 0.9% 10 ML SYRINGE IVP PRN (21:24)
[2020-09-07] MEDS: MULTIVITAMIN 10 ML, FOLIC ACID INJ 1 MG, THIAMINE INJ 100 MG, MAGNESIUM SULFATE 2 GM in... IV SCH ×5 (22:00)
[2020-09-07] MEDS ORDERED: traMADol 50 MG TABLET PO PRN (22:28)
[2020-09-07] MEDS: SODIUM CHLORIDE FLUSH 0.9% 10 ML SYRINGE IVP SCH (23:53)
[2020-09-08] MEDS: MORPHINE 2 MG/ML CARPUJECT IVP PRN ×6 (01:49→20:47)
[2020-09-08 05:03] LABS: BASOPHILS % (AUTO) 0.2 %; EOSINOPHILS % (AUTO) 0.4 %; HCT - HEMATOCRIT 37.2 % (37.0-47.0); HGB - HEMOGLOBIN 11.9 g/dL (12.0-16.0); LYMPHOCYTES % (AUTO) 14.1 %; MEAN CORPUSCULAR VOLUME 90.7 fL (81.0-99.0); MONOCYTES % (AUTO) 14.2 %; NEUTROPHILS % (AUTO) 70.6 %; PLT - PLATELET COUNT 177 10^3/uL (130-450); RED CELL DISTRIBUTION WIDTH 12.1 % (12.0-15.0); WHITE BLOOD COUNT 5.6 x10^3/uL (4.8-10.8)
[2020-09-08 05:04] LABS: CALCIUM 8.6 mg/dL (8.5-10.3); CREATININE 0.8 mg/dL (0.4-1.0); POTASSIUM 3.8 mmol/L (3.5-5.0)
[2020-09-08 05:11] LABS: ABNORMAL LYMPHS % (MANUAL) 0 %
[2020-09-08 05:41] LABS: BAND NEUTROPHILS % (MANUAL) 6 %; DIFFERENTIAL COMMENT MANUAL DIFFERENTIAL; LYMPHOCYTES # (MANUAL) 0.6 10^3/uL (1.5-3.5); LYMPHOCYTES % (MANUAL) 11 %; MONOCYTES # (MANUAL) 0.6 10^3/uL (0.0-1.0); NEUTROPHILS # (MANUAL) 4.4 10^3/uL (1.5-6.6); NUCLEATED RBC (MANUAL) 1 %; PLATELET ESTIMATE, MANUAL NORMAL (130-450,000) (NORMAL); RBC MORPHOLOGY (MULTIPLE) NORMAL APPEARANCE (NORMAL)
[2020-09-08] MEDS: ENOXAPARIN 40 MG/0.4 ML SYRINGE SUBQ SCH ×2 (08:32→08:44)
[2020-09-08] MEDS: cefTRIAXone 2 GM in SODIUM CHLORIDE 0.9% MINIBAG 100 ML IV SCH (08:32)
--- NOTE | 2020-09-08 08:54 | PROVIDER PROGRESS NOTE ---
Assessment/Plan - Problem List (1) Sepsis Qualifiers: Sepsis type: Escherichia coli Assessment/Plan: Patient has pyelonephritis and subsequently grew E. coli on blood and urine culture. Blood cultures were repeated yesterday. Patient had a temperature of 38.5 C today. We will repeat blood cultures tomorrow. If blood cultures are negative x2 days, patient remains afebrile and white blood cell count is normal, will consider switching patient to oral antibiotics and possible discharge home She also has a right otitis media. Currrently on Rocephin 2 g IV daily. (2) Pyelonephritis Assessment/Plan: On Rocephin 2 g IV daily. E. coli grew on previous blood and urine culture. (3) E coli bacteremia Assessment/Plan: Blood cultures were repeated yesterday. Patient had a temperature of 38.5 C today. We will repeat blood cultures tomorrow. If blood cultures are negative x2 days, patient remains afebrile and white blood cell count is normal, will consider switching patient to oral antibiotics and possible discharge home (4) ROM (right otitis media) Assessment/Plan: On Rocephin 2 g IV daily. - Current Meds Current Meds: Current Medications Generic Name Dose Route Start Last Admin Trade Name Freq PRN Reason Stop Dose Admin Enoxaparin Sodium 40 mg 09/08/20 09:00 09/08/20 08:44 Enoxaparin 40 Mg/0.4 Ml Syringe SUBQ Not Given DAILY GONZALO Ceftriaxone Sodium 2 gm/ 100 mls @ 200 mls/hr 09/08/20 09:00 09/08/20 08:32 Sodium Chloride IV 200 mls/hr DAILY GONZALO Administration Multivitamins 10 ml/ Folic 1,015.2 mls @ 100 mls/hr 09/07/20 21:03 09/08/20 01:49 Acid 1 mg/ Thiamine HCl 100 mg IV 100 mls/hr / Magnesium Sulfate 2 gm/ DAILY GONZALO Infusion Sodium Chloride Morphine Sulfate 2 mg 09/07/20 21:02 09/08/20 08:50 Morphine 2 Mg/Ml Carpuject IVP 2 mg Q3HR PRN Administration Severe Pain Sodium Chloride 10 ml 09/07/20 19:38 09/07/20 21:24 Sodium Chloride Flush 0.9% 10 Ml Syringe IVP 10 ml PRN PRN Administration NEEDED PER PROVIDER ORDERS Sodium Chloride 10 ml 09/08/20 01:00 09/07/20 23:53 Sodium Chloride Flush 0.9% 10 Ml Syringe IVP 10 ml 0100,0900,1700 GONZALO Administration Tramadol HCl 50 mg 09/07/20 22:28 09/07/20 22:52 Tramadol 50 Mg Tablet PO 50 mg Q6HR PRN Administration NEEDED PER PROVIDER ORDERS - Lab Result Fish Bone Diagrams: 09/08/20 04:20 09/08/20 04:20 Subjective - Subjective Patient Reports: Other (She was initially resting comfortably in bed. However while auscultating her heart, she complained of right ear pain. Palpation of the external areas around the right ear produces significant pain. She became tear ful.) Objective Vital Signs: Vital Signs - 24 hr 09/07/20 09/07/20 09/07/20 17:08 18:43 19:19 Temperature 38.8 C H 37.3 C Heart Rate 111 H 104 H 101 H Heart Rate [ Radial] Respiratory 16 16 15 Rate Blood Pressure 112/60 133/67 H 129/68 Blood Pressure [Left Brachial artery] O2 Saturation 99 99 98 09/07/20 09/07/20 09/08/20 20:14 23:49 04:22 Temperature 37.9 C 37.4 C 37.5 C Heart Rate Heart Rate [ 101 H 97 92 Radial] Respiratory 22 20 20 Rate Blood Pressure Blood Pressure 132/66 H 124/59 L 103/55 L [Left Brachial artery] O2 Saturation 97 99 98 09/08/20 09/08/20 07:50 08:00 Temperature 38.5 C H 37.8 C Heart Rate Heart Rate [ 95 91 Radial] Respiratory 18 20 Rate Blood Pressure Blood Pressure 105/49 L 117/53 L [Left Brachial artery] O2 Saturation 94 97 Oxygen O2 Source Room air I&O (Last 24 Hrs): Intake and Output Totals x24h 09/06/20 09/07/20 09/08/20 23:59 23:59 23:59 Intake Total 788.333 0 Output Total 250 Balance 538.333 0 General: Alert, Oriented x3, Moderate distress HEENT: PERRLA, EOMI Neck: Supple, No JVD Neuro: Alert, Non Focal, Oriented Times 3 Cardiovascular: Regular rate, Normal S1, Normal S2, No murmurs Respiratory: Chest non-tender, No respiratory distress, Breath sounds nml Abdomen: Normal bowel sounds, Soft Extremities: No clubbing, No cyanosis, No edema, No tenderness/swelling Skin: No rashes, No breakdown, No significant lesion - Results Results: Laboratory Results WBC 5.6 x10^3/uL (4.8-10.8) 09/08/20 04:20 RBC 4.10 10^6/uL (4.20-5.40) L 09/08/20 04:20 Hgb 11.9 g/dL (12.0-16.0) L 09/08/20 04:20 Hct 37.2 % (37.0-47.0) 09/08/20 04:20 MCV 90.7 fL (81.0-99.0) 09/08/20 04:20 MCH 29.0 pg (27.0-31.0) 09/08/20 04:20 MCHC 32.0 g/dL (32.0-36.0) 09/08/20 04:20 RDW 12.1 % (12.0-15.0) 09/08/20 04:20 Plt Count 177 10^3/uL (130-450) 09/08/20 04:20 MPV 10.0 fL (7.9-10.8) 09/08/20 04:20 Neut # (Auto) Not Reportable 09/08/20 04:20 Lymph # (Auto) Not Reportable 09/08/20 04:20 Door # (Auto) Not Reportable 09/08/20 04:20 Eos # (Auto) Not Reportable 09/08/20 04:20 Baso # (Auto) Not Reportable 09/08/20 04:20 Absolute Nucleated RBC Not Reportable 09/08/20 04:20 Total Counted 100 09/08/20 04:20 Band Neuts % (Manual) 6 % (0-10) 09/08/20 04:20 Abnorm Lymph % (Manual) 0 % 09/08/20 04:20 Nucleated RBC % Not Reportable 09/08/20 04:20 Neutrophils # (Manual) 4.4 10^3/uL (1.5-6.6) 09/08/20 04:20 Lymphocytes # (Manual) 0.6 10^3/uL (1.5-3.5) L 09/08/20 04:20 Monocytes # (Manual) 0.6 10^3/uL (0.0-1.0) 09/08/20 04:20 Eosinophils # (Manual) 0.0 10^3/uL (0-0.7) 09/08/20 04:20 Basophils # (Manual) 0.0 10^3/uL (0-0.1) 09/08/20 04:20 Nucleated RBCs 1 % 09/08/20 04:20 Differential Comment MANUAL DIFFERENTIAL 09/08/20 04:20 Platelet Estimate NORMAL (130-450,000) (NORMAL) 09/08/20 04:20 Platelet Morphology NORMAL APPEARANCE (NORMAL) 09/07/20 17:27 RBC Morph Micro Appear NORMAL APPEARANCE (NORMAL) 09/08/20 04:20 Sodium 133 mmol/L (135-145) L 09/08/20 04:20 Potassium 3.8 mmol/L (3.5-5.0) 09/08/20 04:20 Chloride 98 mmol/L (101-111) L 09/08/20 04:20 Carbon Dioxide 25 mmol/L (21-32) 09/08/20 04:20 Anion Gap 10.0 (6-13) 09/08/20 04:20 BUN 6 mg/dL (6-20) 09/08/20 04:20 Creatinine 0.8 mg/dL (0.4-1.0) 09/08/20 04:20 Estimated GFR (MDRD) 75 (>89) L 09/08/20 04:20 Glucose 137 mg/dL (70-100) H 09/08/20 04:20 Lactic Acid 1.2 mmol/L (0.5-2.2) 09/07/20 17:27 Calcium 8.6 mg/dL (8.5-10.3) 09/08/20 04:20 Total Bilirubin 0.4 mg/dL (0.2-1.0) 09/07/20 17:27 AST 23 IU/L (10-42) 09/07/20 17:27 ALT 27 IU/L (10-60) 09/07/20 17:27 Alkaline Phosphatase 85 IU/L (42-121) 09/07/20 17:27 Total Protein 7.2 g/dL (6.7-8.2) 09/07/20 17:27 Albumin 3.6 g/dL (3.2-5.5) 09/07/20 17: Globulin 3.6 g/dL (2.1-4.2) 09/07/20 17: Albumin/Globulin Ratio 1.0 (1.0-2.2) 09/07/20 17:27 Urine Color YELLOW 09/07/20 20:30 Urine Clarity HAZY (CLEAR) 09/07/20 20:30 Urine pH 7.0 PH (5.0-7.5) 09/07/20 20:30 Ur Specific [place] 1.020 (1.002-1.030) 09/07/20 20:30 Urine Protein 100 mg/dL (NEGATIVE) H 09/07/20 20:30 Urine Glucose (UA) NEGATIVE mg/dL (NEGATIVE) 09/07/20 20: Urine Ketones NEGATIVE mg/dL (NEGATIVE) 09/07/20 20:30 Urine Occult Blood MODERATE (NEGATIVE) H 09/07/20 20:30 Urine Nitrite NEGATIVE (NEGATIVE) 09/07/20 20:30 Urine Bilirubin NEGATIVE (NEGATIVE) 09/07/20 20:30 Urine Urobilinogen 0.2 (NORMAL) E.U./dL (NORMAL) 09/07/20 20:30 Ur Leukocyte Esterase TRACE (NEGATIVE) H 09/07/20 20:30 Urine RBC 11-25 /HPF (0-5) H 09/07/20 20:30 Urine WBC 6-10 /HPF (0-5) H 09/07/20 20:30 Ur Squamous Epith Cells FEW Squamous (<= Few) 09/07/20 20:30 Urine Bacteria Many /HPF (None Seen) H 09/07/20 20:30 Urine Culture Comments INDICATED 09/07/20 20:30 Nasal Adenovirus (PCR) NOT DETECTED 09/07/20 19:55 Nasal B. parapertussis DNA (PCR) NOT DETECTED 09/07/20 19:55 Nasal Coronavir 229E PCR NOT DETECTED 09/07/20 19:55 Nasal Coronavir HKU1 PCR NOT DETECTED 09/07/20 19:55 Nasal Coronavir NL63 PCR NOT DETECTED 09/07/20 19:55 Nasal Coronavir OC43 PCR NOT DETECTED 09/07/20 19:55 Nasal Enterovir/Rhinovir PCR NOT DETECTED 09/07/20 19:55 Nasal Influenza B PCR NOT DETECTED 09/07/20 19:55 Nasal Influenza A PCR NOT DETECTED 09/07/20 19:55 Nasal Parainfluen 1 PCR NOT DETECTED 09/07/20 19:55 Nasal Parainfluen 2 PCR NOT DETECTED 09/07/20 19:55 Nasal Parainfluen 3 PCR NOT DETECTED 09/07/20 19:55 Nasal Parainfluen 4 PCR NOT DETECTED 09/07/20 19:55 Nasal RSV (PCR) NOT DETECTED 09/07/20 19:55 Nasal B.pertussis DNA PCR NOT DETECTED 09/07/20 19:55 Nasal C.pneumoniae (PCR) NOT DETECTED 09/07/20 19:55 Sánchez Human Metapneumo PCR NOT DETECTED 09/07/20 19:55 Nasal M.pneumoniae (PCR) NOT DETECTED 09/07/20 19:55 Nasal SARS-CoV-2 (PCR) NOT DETECTED 09/07/20 19:55 Sepsis Event Note (H) - Evaluation Current Stage of Sepsis: Sepsis Possible source of Sepsis: positive: Genitourinary - Sepsis Criteria Sepsis Criteria: Recorded Temperature greater than 38.3C or Less than 36C, Recorded Heart Rate greater than 90 bpm ABX Reporting Has patient been on IV antibiotics over the past 48 hours?: Yes
[2020-09-08] MEDS: MULTIVITAMIN 10 ML, FOLIC ACID INJ 1 MG, THIAMINE INJ 100 MG, MAGNESIUM SULFATE 2 GM in... IV SCH ×5 (11:22)
[2020-09-08] MEDS: SODIUM CHLORIDE FLUSH 0.9% 10 ML SYRINGE IVP SCH ×2 (11:24→16:24)
[2020-09-08] MEDS ORDERED: TETRACAINE 0.5% OPHTH DROPS 4 ML RIGHTEAR PRN (14:18)
[2020-09-08] MEDS ORDERED: TETRACAINE 0.5% OPHTH DROPS 4 ML RIGHTEAR STA (14:22)
[2020-09-08] MEDS: SODIUM CHLORIDE FLUSH 0.9% 10 ML SYRINGE IVP PRN (17:07)
--- NOTE | 2020-09-08 18:10 | PHARMACY PROGRESS NOTE ---
- Best Possible Medication History Admit Date and Time: 09/07/201923 Processed by: Nursing Medication History completed: Yes As the person ultimately responsible for medication therapy, providers are able to order a medication from an existing home medication list in [facility] via the "Reconcile Routine" prior to Confirmation of that medication by support analyst. Such practice is discouraged except when the physician, in their clinical judgment, deems that a medical need exists for a medication without regard to previous use.
[2020-09-08] MEDS: ZOLPIDEM 5 MG TABLET PO PRN (20:47)
[2020-09-09] MEDS: MORPHINE 2 MG/ML CARPUJECT IVP PRN ×2 (01:26→06:14)
[2020-09-09] MEDS: SODIUM CHLORIDE FLUSH 0.9% 10 ML SYRINGE IVP SCH ×3 (01:27→16:40)
[2020-09-09 06:33] LABS: BASOPHILS % (AUTO) 0.3 %; EOSINOPHILS % (AUTO) 0.5 %; HCT - HEMATOCRIT 35.4 % (37.0-47.0); HGB - HEMOGLOBIN 11.6 g/dL (12.0-16.0); LYMPHOCYTES # (AUTO) 1.4 10^3/uL (1.5-3.5); LYMPHOCYTES % (AUTO) 22.9 %; MEAN CORPUSCULAR HEMOGLOBIN 29.8 pg (27.0-31.0); MEAN CORPUSCULAR HGB CONC 32.8 g/dL (32.0-36.0); MEAN PLATELET VOLUME 9.5 fL (7.9-10.8); NEUTROPHILS # (AUTO) 3.5 10^3/uL (1.5-6.6); PLT - PLATELET COUNT 185 10^3/uL (130-450); RED BLOOD COUNT 3.89 10^6/uL (4.20-5.40); RED CELL DISTRIBUTION WIDTH 12.2 % (12.0-15.0); WHITE BLOOD COUNT 5.9 x10^3/uL (4.8-10.8)
[2020-09-09 06:39] LABS: CALCIUM 8.1 mg/dL (8.5-10.3); CREATININE 0.8 mg/dL (0.4-1.0)
--- NOTE | 2020-09-09 07:26 | PROVIDER PROGRESS NOTE ---
Assessment/Plan - Problem List (1) Sepsis Qualifiers: Sepsis type: Escherichia coli Assessment/Plan: Patient has pyelonephritis and subsequently grew E. coli on blood and urine culture. Blood cultures repeated today 09/09/20. Patient had a temperature of 38.0C today. She also has a right otitis media. Currrently on Rocephin 2 g IV daily. Anticipated discharge 0n 09/10 or 09/11 (2) Pyelonephritis Assessment/Plan: On Rocephin 2 g IV daily. E. coli grew on previous blood and urine culture. (3) E coli bacteremia Assessment/Plan: She had a temperature of 38.0 C today. Blood cultures repeated today 09/09 (4) ROM (right otitis media) Assessment/Plan: On Rocephin 2 g IV daily. - Current Meds Current Meds: Current Medications Generic Name Dose Route Start Last Admin Trade Name Freq PRN Reason Stop Dose Admin Enoxaparin Sodium 40 mg 09/08/20 09:00 09/08/20 08:44 Enoxaparin 40 Mg/0.4 Ml Syringe SUBQ Not Given DAILY GONZALO Ceftriaxone Sodium 2 gm/ 100 mls @ 200 mls/hr 09/08/20 09:00 09/08/20 09:05 Sodium Chloride IV Infused DAILY GONZALO Infusion Multivitamins 10 ml/ Folic 1,015.2 mls @ 100 mls/hr 09/07/20 21:03 09/08/20 21:35 Acid 1 mg/ Thiamine HCl 100 mg IV Infused / Magnesium Sulfate 2 gm/ DAILY GONZALO Infusion Sodium Chloride Morphine Sulfate 2 mg 09/07/20 21:02 09/09/20 06:14 Morphine 2 Mg/Ml Carpuject IVP 2 mg Q3HR PRN Administration Severe Pain Sodium Chloride 10 ml 09/07/20 19:38 09/08/20 17:07 Sodium Chloride Flush 0.9% 10 Ml Syringe IVP 10 ml PRN PRN Administration NEEDED PER PROVIDER ORDERS Sodium Chloride 10 ml 09/08/20 01:00 09/09/20 01:27 Sodium Chloride Flush 0.9% 10 Ml Syringe IVP 10 ml 0100,0900,1700 GONZALO Administration Tramadol HCl 50 mg 09/07/20 22:28 09/07/20 22:52 Tramadol 50 Mg Tablet PO 50 mg Q6HR PRN Administration NEEDED PER PROVIDER ORDERS Zolpidem Tartrate 5 mg 09/07/20 19:38 09/08/20 20:47 Zolpidem 5 Mg Tablet PO 5 mg QPM PRN Administration Insomnia - Lab Result Fish Bone Diagrams: 09/09/20 06:22 09/09/20 06:22 - Additional Planning My Orders: My Active Orders 09/09/20 CULTURE, BLOOD #1 [RM] Routine CULTURE, BLOOD #2 [RM] Routine 09/09/20 09:00 Nicotine 7 mg Patch [Nicoderm] 1 patch TOP DAILY Subjective - Subjective Patient Reports: Other (Patient is tearful at time of exam. She complains of significant right ear pain.) Objective Vital Signs: Vital Signs - 24 hr 09/08/20 09/08/20 09/08/20 07:50 08:00 14:05 Temperature 38.5 C H 37.8 C 37.9 C Heart Rate [ 95 91 88 Radial] Respiratory 18 20 16 Rate Blood Pressure 105/49 L 117/53 L 103/58 L [Left Brachial artery] O2 Saturation 94 97 98 09/08/20 09/08/20 09/09/20 17:00 20:36 00:42 Temperature 38.7 C H 38.0 C H 36.4 C L Heart Rate [ 97 91 100 Radial] Respiratory 20 21 17 Rate Blood Pressure 118/55 L 114/61 [Left Brachial artery] O2 Saturation 100 98 09/09/20 09/09/20 09/09/20 01:23 04:40 06:23 Temperature 38.0 C H 37.2 C 38.3 C H Heart Rate [ 98 96 Radial] Respiratory 17 16 Rate Blood Pressure 104/57 L 116/45 L [Left Brachial artery] O2 Saturation 98 96 Oxygen O2 Source Room air I&O (Last 24 Hrs): Intake and Output Totals x24h 09/07/20 09/08/20 09/09/20 23:59 23:59 23:59 Intake Total 725.714 2695.067 Output Total 250 Balance 329.785 5670.067 General: Alert, Oriented x3, Moderate distress, Severe distress HEENT: PERRLA, EOMI Neck: Supple, No JVD Neuro: Alert, Non Focal, Oriented Times 3 Cardiovascular: Regular rate, Normal S1, Normal S2 Respiratory: Chest non-tender, No respiratory distress, Breath sounds nml Abdomen: Normal bowel sounds, Soft, No tenderness Extremities: No clubbing, No cyanosis Skin: No rashes, No breakdown - Results Results: Laboratory Results WBC 5.9 x10^3/uL (4.8-10.8) 09/09/20 06:22 RBC 3.89 10^6/uL (4.20-5.40) L 09/09/20 06:22 Hgb 11.6 g/dL (12.0-16.0) L 09/09/20 06:22 Hct 35.4 % (37.0-47.0) L 09/09/20 06:22 MCV 91.0 fL (81.0-99.0) 09/09/20 06:22 MCH 29.8 pg (27.0-31.0) 09/09/20 06: MCHC 32.8 g/dL (32.0-36.0) 09/09/20 06:22 RDW 12.2 % (12.0-15.0) 09/09/20 06:22 Plt Count 185 10^3/uL (130-450) 09/09/20 06:22 MPV 9.5 fL (7.9-10.8) 09/09/20 06:22 Neut # (Auto) 3.5 10^3/uL (1.5-6.6) 09/09/20 06:22 Lymph # (Auto) 1.4 10^3/uL (1.5-3.5) L 09/09/20 06:22 [place] # (Auto) 1.0 10^3/uL (0.0-1.0) 09/09/20 06:22 Eos # (Auto) 0.0 10^3/uL (0.0-0.7) 09/09/20 06:22 Baso # (Auto) 0.0 10^3/uL (0.0-0.1) 09/09/20 06:22 Absolute Nucleated RBC 0.00 x10^3/uL 09/09/20 06:22 Total Counted 100 09/08/20 04:20 Band Neuts % (Manual) 6 % (0-10) 09/08/20 04:20 Abnorm Lymph % (Manual) 0 % 09/08/20 04:20 Nucleated RBC % 0.0 /100WBC 09/09/20 06:22 Neutrophils # (Manual) 4.4 10^3/uL (1.5-6.6) 09/08/20 04:20 Lymphocytes # (Manual) 0.6 10^3/uL (1.5-3.5) L 09/08/20 04:20 Monocytes # (Manual) 0.6 10^3/uL (0.0-1.0) 09/08/20 04:20 Eosinophils # (Manual) 0.0 10^3/uL (0-0.7) 09/08/20 04:20 Basophils # (Manual) 0.0 10^3/uL (0-0.1) 09/08/20 04:20 Nucleated RBCs 1 % 09/08/20 04:20 Differential Comment MANUAL DIFFERENTIAL 09/08/20 04:20 Platelet Estimate NORMAL (130-450,000) (NORMAL) 09/08/20 04:20 Platelet Morphology NORMAL APPEARANCE (NORMAL) 09/07/20 17:27 RBC Morph Micro Appear NORMAL APPEARANCE (NORMAL) 09/08/20 04:20 Sodium 134 mmol/L (135-145) L 09/09/20 06:22 Potassium 4.0 mmol/L (3.5-5.0) 09/09/20 06:22 Chloride 100 mmol/L (101-111) L 09/09/20 06:22 Carbon Dioxide 26 mmol/L (21-32) 09/09/20 06:22 Anion Gap 8.0 (6-13) 09/09/20 06:22 BUN 7 mg/dL (6-20) 09/09/20 06:22 Creatinine 0.8 mg/dL (0.4-1.0) 09/09/20 06:22 Estimated GFR (MDRD) 75 (>89) L 09/09/20 06:22 Glucose 110 mg/dL (70-100) H 09/09/20 06:22 Lactic Acid 1.2 mmol/L (0.5-2.2) 09/07/20 17:27 Calcium 8.1 mg/dL (8.5-10.3) L 09/09/20 06:22 Total Bilirubin 0.4 mg/dL (0.2-1.0) 09/07/20 17:27 AST 23 IU/L (10-42) 09/07/20 17:27 ALT 27 IU/L (10-60) 09/07/20 17:27 Alkaline Phosphatase 85 IU/L (42-121) 09/07/20 17:27 Total Protein 7.2 g/dL (6.7-8.2) 09/07/20 17: Albumin 3.6 g/dL (3.2-5.5) 09/07/20 17: Globulin 3.6 g/dL (2.1-4.2) 09/07/20 17: Albumin/Globulin Ratio 1.0 (1.0-2.2) 09/07/20 17:27 Urine Color YELLOW 09/07/20 20:30 Urine Clarity HAZY (CLEAR) 09/07/20 20:30 Urine pH 7.0 PH (5.0-7.5) 09/07/20 20:30 Ur Specific [place] 1.020 (1.002-1.030) 09/07/20 20:30 Urine Protein 100 mg/dL (NEGATIVE) H 09/07/20 20:30 Urine Glucose (UA) NEGATIVE mg/dL (NEGATIVE) 09/07/20 20:30 Urine Ketones NEGATIVE mg/dL (NEGATIVE) 09/07/20 20:30 Urine Occult Blood MODERATE (NEGATIVE) H 09/07/20 20:30 Urine Nitrite NEGATIVE (NEGATIVE) 09/07/20 20:30 Urine Bilirubin NEGATIVE (NEGATIVE) 09/07/20 20:30 Urine Urobilinogen 0.2 (NORMAL) E.U./dL (NORMAL) 09/07/20 20:30 Ur Leukocyte Esterase TRACE (NEGATIVE) H 09/07/20 20:30 Urine RBC 11-25 /HPF (0-5) H 09/07/20 20:30 Urine WBC 6-10 /HPF (0-5) H 09/07/20 20:30 Ur Squamous Epith Cells FEW Squamous (<= Few) 09/07/20 20:30 Urine Bacteria Many /HPF (None Seen) H 09/07/20 20:30 Urine Culture Comments INDICATED 09/07/20 20:30 Nasal Adenovirus (PCR) NOT DETECTED 09/07/20 19:55 Nasal B. parapertussis DNA (PCR) NOT DETECTED 09/07/20 19:55 Nasal Coronavir 229E PCR NOT DETECTED 09/07/20 19:55 Nasal Coronavir HKU1 PCR NOT DETECTED 09/07/20 19:55 Nasal Coronavir NL63 PCR NOT DETECTED 09/07/20 19:55 Nasal Coronavir OC43 PCR NOT DETECTED 09/07/20 19:55 Nasal Enterovir/Rhinovir PCR NOT DETECTED 09/07/20 19:55 Nasal Influenza B PCR NOT DETECTED 09/07/20 19:55 Nasal Influenza A PCR NOT DETECTED 09/07/20 19:55 Nasal Parainfluen 1 PCR NOT DETECTED 09/07/20 19:55 Nasal Parainfluen 2 PCR NOT DETECTED 09/07/20 19:55 Nasal Parainfluen 3 PCR NOT DETECTED 09/07/20 19:55 Nasal Parainfluen 4 PCR NOT DETECTED 09/07/20 19:55 Nasal RSV (PCR) NOT DETECTED 09/07/20 19:55 Nasal B.pertussis DNA PCR NOT DETECTED 09/07/20 19:55 Nasal C.pneumoniae (PCR) NOT DETECTED 09/07/20 19:55 Sánchez Human Metapneumo PCR NOT DETECTED 09/07/20 19:55 Nasal M.pneumoniae (PCR) NOT DETECTED 09/07/20 19:55 Nasal SARS-CoV-2 (PCR) NOT DETECTED 09/07/20 19:55 Sepsis Event Note (H) - Evaluation Current Stage of Sepsis: Sepsis Possible source of Sepsis: positive: Genitourinary - Sepsis Criteria Sepsis Criteria: Recorded Temperature greater than 38.3C or Less than 36C, Recorded Heart Rate greater than 90 bpm ABX Reporting Has patient been on IV antibiotics over the past 48 hours?: Yes
[2020-09-09] MEDS: HYDROmorphone 1 MG/ML CARPUJECT IVP PRN ×4 (09:05→21:18)
[2020-09-09] MEDS: cefTRIAXone 2 GM in SODIUM CHLORIDE 0.9% MINIBAG 100 ML IV SCH (09:21)
[2020-09-09] MEDS: NICOTINE 7 MG PATCH TOP SCH (09:22)
[2020-09-09] MEDS: ENOXAPARIN 40 MG/0.4 ML SYRINGE SUBQ SCH (09:22)
[2020-09-09] MEDS: MULTIVITAMIN 10 ML, FOLIC ACID INJ 1 MG, THIAMINE INJ 100 MG, MAGNESIUM SULFATE 2 GM in... IV SCH ×5 (10:25)
[2020-09-09] MEDS: SODIUM CHLORIDE FLUSH 0.9% 10 ML SYRINGE IVP PRN (13:48)
[2020-09-09] MEDS ORDERED: IOPAMIDOL-300 100 ML VIAL ONE (14:06)
[2020-09-09] MEDS: SODIUM CHLORIDE 0.9% 1,000 ML IV SCH (14:47)
[2020-09-09] MEDS ORDERED: IOPAMIDOL-300 100 ML VIAL IVP ONE (17:06)
--- NOTE | 2020-09-09 17:22 | CT Report ---
PROCEDURE: IAC'S W INDICATIONS: Severe right ear pain and right-sided headache CONTRAST: IV CONTRAST: Isovue 300 ml: 100 PO CONTRAST: *NO PO CONTRAST TECHNIQUE: After the administration of intravenous contrast, 0.6 mm thick direct axial and coronal sections acqu ired through the affected temporal bone. For radiation dose reduction, the following was used: auto mated exposure control, adjustment of mA and/or kV according to patient size. COMPARISON: None FINDINGS: Image quality: Excellent. RIGHT: External auditory canal: Canal has a normal appearance. Middle ear: Middle ear structures, including the ossicles and tympanic membrane, appear normal. No abnormal fluid or soft tissues within the middle ear cavity. Inner ear: Inner ear is normally formed and appears unremarkable. Facial nerve appears normal throu ghout its course. Mastoids: Mastoid air cells are clear. LEFT: External auditory canal: Canal has a normal appearance. Middle ear: Middle ear structures, including the ossicles and tympanic membrane, appear normal. No abnormal fluid or soft tissues within the middle ear cavity. Inner ear: Inner ear is normally formed and appears unremarkable. Facial nerve appears normal throu ghout its course. Mastoids: Mastoid air cells are clear. MISCELLANEOUS: The visualized surrounding bones of the skull and face are intact with no acute or jerry picious osseous lesion. IV contrast opacifies the visualized intracranial arteries and veins without acute finding identified. Visualized portions of the paranasal sinuses are clear. IMPRESSION: Normal temporal bone CT examination. Reviewed by: Tristen Thompson MD on 09/09/2020 5:21 PM PDT Approved by: Tristen Thompson MD on 09/09/2020 5:21 PM PDT Station ID: [id number]
[2020-09-09] MEDS: ZOLPIDEM 5 MG TABLET PO PRN (21:17)
[2020-09-10] MEDS: HYDROmorphone 1 MG/ML CARPUJECT IVP PRN ×5 (00:52→14:31)
[2020-09-10] MEDS: SODIUM CHLORIDE 0.9% 1,000 ML IV SCH ×2 (00:55→14:37)
[2020-09-10] MEDS: SODIUM CHLORIDE FLUSH 0.9% 10 ML SYRINGE IVP SCH ×2 (01:45→09:56)
[2020-09-10 07:50] LABS: BASOPHILS % (AUTO) 0.2 %; EOSINOPHILS # (AUTO) 0.2 10^3/uL (0.0-0.7); EOSINOPHILS % (AUTO) 2.5 %; HCT - HEMATOCRIT 33.6 % (37.0-47.0); HGB - HEMOGLOBIN 10.8 g/dL (12.0-16.0); LYMPHOCYTES # (AUTO) 1.3 10^3/uL (1.5-3.5); LYMPHOCYTES % (AUTO) 21.9 %; MEAN CORPUSCULAR HEMOGLOBIN 29.4 pg (27.0-31.0); MEAN CORPUSCULAR HGB CONC 32.1 g/dL (32.0-36.0); MEAN CORPUSCULAR VOLUME 91.6 fL (81.0-99.0); MEAN PLATELET VOLUME 9.2 fL (7.9-10.8); MONOCYTES % (AUTO) 16.1 %; NEUTROPHILS # (AUTO) 3.5 10^3/uL (1.5-6.6); PLT - PLATELET COUNT 215 10^3/uL (130-450); RED BLOOD COUNT 3.67 10^6/uL (4.20-5.40); RED CELL DISTRIBUTION WIDTH 12.3 % (12.0-15.0); WHITE BLOOD COUNT 5.9 x10^3/uL (4.8-10.8)
[2020-09-10 07:56] LABS: CALCIUM 8.4 mg/dL (8.5-10.3); CREATININE 0.7 mg/dL (0.4-1.0); POTASSIUM 4.3 mmol/L (3.5-5.0)
[2020-09-10] MEDS: cefTRIAXone 2 GM in SODIUM CHLORIDE 0.9% MINIBAG 100 ML IV SCH (08:50)
[2020-09-10] MEDS ORDERED: polyethylene glycoL 3350 17 GM PACKET PO SCH (09:00)
[2020-09-10] MEDS ORDERED: DOCUSATE SODIUM 250 MG CAPSULE PO SCH (09:00)
[2020-09-10] MEDS: NICOTINE 7 MG PATCH TOP SCH (09:14)
[2020-09-10] MEDS: ENOXAPARIN 40 MG/0.4 ML SYRINGE SUBQ SCH (09:14)
--- NOTE | 2020-09-10 11:26 | DISCHARGE SUMMARY ---
Discharge Summary Admit Date: 09/07/20 Discharge Date: 09/10/20 Discharging Provider: Mckenzie Batistau Code Status: Attempt Resuscitation Condition at Discharge: Stable Discharge Disposition: 01 Home, Self Care - DIAGNOSES Admission Diagnoses: Sepsis Pyelonephritis E. coli bacteremia Right otitis media Discharge Diagnoses with Status of Each Condition: Sepsis: Improving/Resolved Pyelonephritis: Improving/Resolved E. coli bacteremia: Improving/Resolved Right otitis media: Improving/Resolved - HPI History of Present Illness: This is a relatively healthy 55-year-old white female, was on no prescription meds, who came to the ED yesterday with complaints of fever, body aches and right ear pain. 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 Work-up in the ED yesterday showed a fever, a normal wh ite blood count and normal lactic acid level, but she had bacteriuria and otitis media diagnosed. She was discharged to take Cipro. She underwent a Covid test which was negative yesterday and Mononucleosis test was neg yesterday. Today her blood cultures have turned positive, 2 out of 2 and have been identified as E. coli. The urine cx taken yesterday is also growing E coli. She was called to [facility] back in. She still has a fever and actually felt worse overall and with worse ear pain, new RLQ and R flank pain. Today, her WBC and Lactic acid levels are not elevated. She underwent CT of the abdomen to evaluate for pyelonephritis or stone/obstruction and this did show right-sided pyelonephr itis. She has no stones or hydronephrosis. The ED provider confirmed she has R- sided otitis media. She is being admitted for management of sepsis with elevated white blood count, tachycardia, persistent fever with a urinary source causing bacteremia, and to also treat her painful otitis media. - HOSPITAL COURSE Hospital Course: She was maintained on Rocephin 2 g IV daily for 3 days. On the first day of hospital stay she was febrile however for at least 24 hours prior to discharge she remained afebrile. Repeat blood cultures done in the hospital have been no growth to date. The patient's initial blood cultures which were positive for E. coli showed a pansensitive bacteria. Consequently upon discharge the patient was advised to complete the remaining 13 days of ciprofloxacin 500 mg p.o. twice daily that were prescribed. She was also prescribed oxycodone 5 mg tablets to take 1 tablet every 4-6 hours as needed for pain. She underwent a CT scan of the head with contrast To rule out malignancy or abscess due to significant right ear pain. The imaging was negative. She is being discharged in stable condition. - ALLERGIES Allergies/Adverse Reactions: Allergies Allergy/AdvReac Type Severity Reaction Status Date / Time No Known Drug Allergies Allergy Verified 09/06/20 15:27 - MEDICATIONS Home Medications: Ambulatory Orders Medication Instructions Recorded Confirmed Ciprofloxacin HCl 1 tablet PO BID 14 Days #28 tablet 09/06/20 09/07/20 Acetaminophen [Tylenol] 650 mg PO TID PRN 09/07/20 09/07/20 Ibuprofen [Motrin] 600 mg PO Q6H PRN 09/07/20 09/07/20 oxyCODONE [Roxicodone] 5 mg PO Q4-6H #20 tablet 09/10/20 - PHYSICAL EXAM AT DISCHARGE General Appearance: positive: Alert, Mild distress Eyes Bilateral: positive: PERRL, EOMI ENT: positive: No signs of dehydration Neck: positive: No JVD, Trachea midline Respiratory: positive: Chest non-tender, No respiratory distress, Breath sounds nml. negative: Wheezes, Rales, Rhonchi Cardiovascular: positive: Regular rate & rhythm, No murmur Abdomen: positive: Non-tender, No organomegaly, Nml bowel sounds, No distention. negative: Guarding, Rebound Skin: positive: Color nml, No rash, Warm, Dry Extremities: positive: Non-tender, Full ROM, Nml appearance, No pedal edema Neurologic/Psychiatric: positive: Oriented x3, Mood/affect nml - LABS Result Diagrams: 09/10/20 07:41 09/10/20 07:41 - SEPSIS Current Stage of Sepsis: Sepsis Possible source of Sepsis: Genitourinary Sepsis Criteria: Recorded Temperature greater than 38.3C or Less than 36C, Recorded Heart Rate greater than 90 bpm - TIME SPENT Time Spent in Discharge (Minutes): 25
--- NOTE | 2020-09-10 11:28 | Discharge Plan ---
Discharge Plan Problem Reviewed?: Yes Disposition: Home, Self Care Condition: Stable Prescriptions: oxyCODONE [Roxicodone] 5 mg PO Q4-6H #20 tablet Diet: Regular Activity Restrictions: Activity as Tolerated Health Concerns: You were admitted on 09/07/20 after blood cultures that had been drawn the previous day grew E. coli. You had been seen in the emergency department and diagnosed with a urinary tract infection for which he was prescribed 14 days of Cipro 500 mg p.o. twice daily. By the time of admission you had taken 2 doses. You were started on Rocephin which was maintained for 3 days of your hospital stay. Initially you were febrile but by the time of discharge you had not had a fever in more than 24 hours. Your white blood cell count was normal throughout your hospital stay. Repeat blood cultures while in the hospital to when no growth by the time of discharge You also were diagnosed with a right ear infection For which the Rocephin covered the possible infection. You had a CT of the head with a Folkers on the ears. This came back negative for any mass or abscess. You are being discharged in stable condition. You have been advised to complete the course of Cipro which was initially ordered. You were prescribed oxycodone 5 mg tablets to take 1 tablet every 4-6 hours as needed[address] Do not drive after having taken oxycodone. You may follow-up with your primary care physician as needed. The following plan was explained to you, you expressed understanding and are in agreement with the plan. No Smoking: If you smoke, Please STOP! Call for help.
[2020-09-10 15:40] VITALS: BP 119/53
== END 2020-09-10 16:00 | disposition home or self-care (01) | DRG 872 ==
LOC: ED 16:52 → MS3 19:24 → MS2 09-09 10:30
PROVIDERS: ADMIT Internal Medicine; ATTEND Internal Medicine
DX: A41.51 Sepsis due to Escherichia coli [E. coli] (principal); N12 Tubulo-interstitial nephritis, not specified as acute or chronic; H66.91 Otitis media, unspecified, right ear; Z72.0 Tobacco use
CPT/HCPCS: 0202U; 36415; 74176; 80048; 80053; 81001; 83605; 85025; 87040; 87086; 96365; 96375; 99284; 99285; A9270; J1170; J3411; Q9967

== ENCOUNTER 2023-07-11 22:10 | Emergency (ER) | payer MEDICAID ==
--- NOTE | 2023-07-11 22:36 | ED Physician Documentation ---
PD HPI ABD PAIN - Stated complaint Stated Complaint: L SIDE PX - Chief complaint Chief Complaint: Abd Pain - History obtained from History obtained from: Patient - Additional information Additional information: She is pretty healthy. In August 2020 she had E. coli bacteremia related to pyelonephritis. Over the last 3 days she has had pretty severe left-sided abdominal pain radiating up and down. It is in the mid abdomen kind of laterally. Few hours ago developed shaking chills and then a fever. She denies urinary complaints. No cough. No sore throat. She has had bodyaches. She does not feel like this is similar to when she had sepsis and pyelonephritis. That said the pain is pretty significant. She does have a history of remote appendectomy and cholecystectomy. PD PAST MEDICAL HISTORY - Past Medical History Cardiovascular: None Respiratory: None Neuro: None Endocrine/Autoimmune: None GI: None BOWSTRING MAKER: None : None HEENT: Other Psych: None Musculoskeletal: None Derm: None - Past Surgical History Past Surgical History: Yes /BOWSTRING MAKER: section, Tubal ligation - Present Medications Home Medications: Ambulatory Orders Medication Instructions Recorded Confirmed Ciprofloxacin HCl 1 tablet PO BID 14 Days #28 tablet 09/06/20 09/07/20 Acetaminophen [Tylenol] 650 mg PO TID PRN 09/07/20 09/07/20 Ibuprofen [Motrin] 600 mg PO Q6H PRN 09/07/20 09/07/20 oxyCODONE [Roxicodone] 5 mg PO Q4-6H #20 tablet 09/10/20 Ciprofloxacin HCl [Cipro] 500 mg PO BID #14 tablet 07/12/23 HYDROcod/ACETAM 5/325 [[place] 5/325] 1 - 2 tablet PO Q6H PRN #14 tablet 07/12/23 - Allergies Allergies/Adverse Reactions: Allergies Allergy/AdvReac Type Severity Reaction Status Date / Time Iodinated Contrast Media AdvReac Respiratory Verified 07/12/23 00:39 - Social History Does the pt smoke?: Yes Smoking Status: Current every day smoker Does the pt drink ETOH?: No Does the pt have substance abuse?: Yes - Immunizations Immunizations are current?: Yes - POLST Patient has POLST: No PD ED PE NORMAL - Vitals Vital signs reviewed: Yes - General General: Alert and oriented X 3, Other (She is febrile with mild tachypnea. She appears uncomfortable clutching the left side.) - Cardiac Cardiac: RRR, No murmur - Respiratory Respiratory: No respiratory distress, Clear bilaterally - Abdomen Abdomen: Normal bowel sounds, Soft, Other (Mild tenderness to the left mid abdomen without surgical signs. She is also tender over the left CVA.) - Derm Derm: No rash - Extremities Extremities: No edema, No calf tenderness / cord - Neuro Neuro: Alert and oriented X 3 Results - Vitals Vitals: Vital Signs - 24 hr 07/11/23 07/11/23 07/11/23 22:18 23:02 23:21 Temperature 38.3 C H 37.9 C Heart Rate 100 95 Respiratory 26 H 16 Rate Blood Pressure 139/71 H 142/79 H O2 Saturation 100 97 07/11/23 07/12/23 07/12/23 23:34 00:31 02:23 Temperature 37.9 C 38.1 C H 37.6 C Heart Rate 94 104 H 97 Respiratory 16 16 14 Rate Blood Pressure 141/78 H 133/61 H 115/58 L O2 Saturation 96 97 98 07/12/23 04:03 Temperature Heart Rate 66 Respiratory 16 Rate Blood Pressure 113/62 O2 Saturation 99 Oxygen O2 Source Room air - Labs Labs: Microbiology 07/12/23 04:04 Urine Culture - Preliminary Urine,Clean Catch CULTURE IN PROGRESS. RESULTS TO FOLLOW. Laboratory Tests 07/11/23 07/11/23 07/11/23 22:51 22:51 22:51 WBC 11.5 H RBC 4.49 Hgb 12.6 Hct 40.3 MCV 89.8 MCH 28.1 MCHC 31.3 L RDW 12.4 Plt Count 264 MPV 9.5 Neut # (Auto) 9.7 H Lymph # (Auto) 1.0 L Ada # (Auto) 0.8 Eos # (Auto) 0.0 Baso # (Auto) 0.0 Absolute Nucleated RBC 0.00 Nucleated RBC % 0.0 Sodium 138 Potassium 3.9 Chloride 103 Carbon Dioxide 24 Anion Gap 11.0 BUN 15 Creatinine 0.9 Estimated GFR (MDRD) 65 L Glucose 105 H Lactic Acid 1.0 Calcium 9.5 Total Bilirubin 0.7 AST 16 ALT 19 Alkaline Phosphatase 97 Total Protein 7.2 Albumin 4.3 Globulin 2.9 Albumin/Globulin Ratio 1.5 Urine Color Urine Clarity Urine pH Ur Specific [place] Urine Protein Urine Glucose (UA) Urine Ketones Urine Occult Blood Urine Nitrite Urine Bilirubin Urine Urobilinogen Ur Leukocyte Esterase Urine RBC Urine WBC Urine WBC Clumps Ur Squamous Epith Cells Urine Bacteria Urine Mucus Ur Microscopic Review Urine Culture Comments Nasal Adenovirus (PCR) Nasal B. parapertussis DNA (PCR) Nasal Coronavir 229E PCR Nasal Coronavir HKU1 PCR Nasal Coronavir NL63 PCR Nasal Coronavir OC43 PCR Nasal Enterovir/Rhinovir PCR Nasal Influenza B PCR Nasal Influenza A PCR Nasal Parainfluen 1 PCR Nasal Parainfluen 2 PCR Nasal Parainfluen 3 PCR Nasal Parainfluen 4 PCR Nasal RSV (PCR) Nasal B.pertussis DNA PCR Nasal C.pneumoniae (PCR) Sánchez Human Metapneumo PCR Nasal M.pneumoniae (PCR) Nasal SARS-CoV-2 (PCR) 07/11/23 07/11/23 07/12/23 22:56 23:20 04:04 WBC RBC Hgb Hct MCV MCH MCHC RDW Plt Count MPV Neut # (Auto) Lymph # (Auto) Ada # (Auto) Eos # (Auto) Baso # (Auto) Absolute Nucleated RBC Nucleated RBC % Sodium Potassium Chloride Carbon Dioxide Anion Gap BUN Creatinine Estimated GFR (MDRD) Glucose Lactic Acid Calcium Total Bilirubin AST ALT Alkaline Phosphatase Total Protein Albumin Globulin Albumin/Globulin Ratio Urine Color YELLOW YELLOW Urine Clarity CLEAR HAZY Urine pH 7.0 6.0 Ur Specific [place] 1.015 1.025 Urine Protein 100 H 100 H Urine Glucose (UA) NEGATIVE NEGATIVE Urine Ketones NEGATIVE TRACE Urine Occult Blood MODERATE H MODERATE H Urine Nitrite POSITIVE H POSITIVE H Urine Bilirubin NEGATIVE NEGATIVE Urine Urobilinogen 0.2 (NORMAL) 0.2 (NORMAL) Ur Leukocyte Esterase SMALL H SMALL H Urine RBC 6-10 H 11-25 H Urine WBC 6-10 H 11-25 H Urine WBC Clumps NONE SEEN Ur Squamous Epith Cells MOD Squamous H FEW Squamous Urine Bacteria Rare Few Urine Mucus Moderate Strands Moderate Strands Ur Microscopic Review INDICATED INDICATED Urine Culture Comments NOT INDICATED INDICATED Nasal Adenovirus (PCR) NOT DETECTED Nasal B. parapertussis DNA (PCR) NOT DETECTED Nasal Coronavir 229E PCR NOT DETECTED Nasal Coronavir HKU1 PCR NOT DETECTED Nasal Coronavir NL63 PCR NOT DETECTED Nasal Coronavir OC43 PCR NOT DETECTED Nasal Enterovir/Rhinovir PCR NOT DETECTED Nasal Influenza B PCR NOT DETECTED Nasal Influenza A PCR NOT DETECTED Nasal Parainfluen 1 PCR NOT DETECTED Nasal Parainfluen 2 PCR NOT DETECTED Nasal Parainfluen 3 PCR NOT DETECTED Nasal Parainfluen 4 PCR NOT DETECTED Nasal RSV (PCR) NOT DETECTED Nasal B.pertussis DNA PCR NOT DETECTED Nasal C.pneumoniae (PCR) NOT DETECTED Sánchez Human Metapneumo PCR NOT DETECTED Nasal M.pneumoniae (PCR) NOT DETECTED Nasal SARS-CoV-2 (PCR) NOT DETECTED PD Medical Decision Making - ED course ED course: 57-year-old woman with severe left-sided abdominal pain and now a fever. She has a history of pyelonephritis and that certainly is on the differential. Other intra-abdominal emergencies or viral syndromes could cause this as well. CBC notable for mild leukocytosis at 11. Chemistry panel unremarkable with normal lactate. Care to Dr. Bender at shift change pending urinalysis and CT abdomen and pelvis as well as [employer] respiratory panel. Departure - Departure Disposition: 01 Home, Self Care Clinical Impression: Abdominal pain, Fever, Pyelonephritis Condition: Good Instructions: ED Kidney Infec Female Prescriptions: Ciprofloxacin HCl [Cipro] 500 mg PO BID #14 tablet HYDROcod/ACETAM 5/325 [[place] 5/325] 1 - 2 tablet PO Q6H PRN #14 tablet PRN Reason: Pain Comments: There was mild swelling of your left kidney and the upper portion of your left ureter (the conduit from the kidney to the bladder) on the CT scan; possible causes of this finding include recently-passed kidney stone (note that there is no evidence of kidney stone currently on this CT), kidney infection. Your urinalysis was abnormal and the abnormalities are consistent with urinary tract infection (kidney infection would also cause these types of abnormalities on urinalysis). There were no concerning findings on your blood tests (you had a mildly elevated white blood cell count, GFR mildly below normal range). You were given a one-time dose of IV antibiotic (ceftriaxone) in the emergency department along with a different oral antibiotic (ciprofloxacin), and I am electronically providing you with prescriptions for a 1-week course of the ciprofloxacin for possible kidney infection. I am also providing a prescription for Vicodin (narcotic/opiate pain medication). Follow-up with your primary care provider in 2 to 3 days if your symptoms are not improving and if your fever has not resolved. I am prescribing a short course of narcotic pain medication for you. These are potentially dangerous and addictive medications that should be used carefully. These medications may constipate you. Take an [id number] stool softener (docusate) twice daily with plenty of water while taking these medications. If you go 24 hours without a bowel movement, take [id number] miralax, per package instructions. Do not drink or drive while taking these medications. If you received narcotic or sedating medications while in the emergency department, do not drive for 24 hours. Store this medication in a safe, secure place and out of reach of children. It is a violation of federal law to give or sell this medication to another person or to use in a manner other than prescribed. The ED will not refill narcotic prescriptions, including prescriptions lost or stolen. To dispose of unwanted medications: 1. [facility] [address] in [place] has a medication drop box. They accept prescription medications (in pill form) Friday through Friday 9:00 a.m. to 5:00 p.m. 2. The [facility] [employer] accepts prescription medications (in pill form only) for disposal year round. Call for more information. 3. Contact the [facility] for the next [facility] sponsored prescription drug collection event. , [phone], or [phone]; Forms: PCP List Discharge Date/Time: 07/12/23 04:11
[2023-07-11] MEDS: IBUPROFEN 600 MG TABLET PO STA (22:51)
[2023-07-11] MEDS: HYDROmorphone 1 MG/ML CARPUJECT IVP STA (22:51)
[2023-07-11] MEDS: ONDANSETRON 4 MG/2 ML VIAL IVP STA (22:51)
[2023-07-11] MEDS: SODIUM CHLORIDE 0.9% 1,000 ML IV STA (22:52)
[2023-07-11 22:56] LABS: BASOPHILS % (AUTO) 0.2 %; EOSINOPHILS % (AUTO) 0.1 %; HCT - HEMATOCRIT 40.3 % (37.0-47.0); HGB - HEMOGLOBIN 12.6 g/dL (12.0-16.0); LYMPHOCYTES % (AUTO) 8.7 %; MEAN CORPUSCULAR HEMOGLOBIN 28.1 pg (27.0-31.0); MEAN CORPUSCULAR HGB CONC 31.3 g/dL (32.0-36.0); MEAN CORPUSCULAR VOLUME 89.8 fL (81.0-99.0); MEAN PLATELET VOLUME 9.5 fL (7.9-10.8); MONOCYTES # (AUTO) 0.8 10^3/uL (0.0-1.0); NEUTROPHILS # (AUTO) 9.7 10^3/uL (1.5-6.6); NEUTROPHILS % (AUTO) 83.7 %; PLT - PLATELET COUNT 264 10^3/uL (130-450); RED BLOOD COUNT 4.49 10^6/uL (4.20-5.40); RED CELL DISTRIBUTION WIDTH 12.4 % (12.0-15.0); WHITE BLOOD COUNT 11.5 x10^3/uL (4.8-10.8)
[2023-07-11 23:14] LABS: ALBUMIN 4.3 g/dL (3.2-5.5); ALBUMIN/GLOBULIN RATIO 1.5 (1.0-2.2); BILIRUBIN,TOTAL 0.7 mg/dL (0.2-1.0); CALCIUM 9.5 mg/dL (8.5-10.3); CREATININE 0.9 mg/dL (0.6-1.3); POTASSIUM 3.9 mmol/L (3.5-4.5); TOTAL PROTEIN 7.2 g/dL (6.4-8.9)
[2023-07-11 23:29] LABS: BILIRUBIN,URINE NEGATIVE (NEGATIVE); GLUCOSE, URINE (UA) NEGATIVE (NEGATIVE); KETONES,URINE (UA) NEGATIVE (NEGATIVE); LEUKOCYTE ESTERASE, URINE SMALL (NEGATIVE); NITRITE,URINE POSITIVE (NEGATIVE); OCCULT BLOOD,URINE MODERATE (NEGATIVE); PROTEIN,URINE 100 mg/dL (NEGATIVE); UROBILINOGEN,URINE 0.2 (NORMAL) E.U./dL (NORMAL)
[2023-07-11 23:41] LABS: CLARITY,URINE CLEAR (CLEAR)
[2023-07-11 23:42] LABS: BACTERIA,URINE Rare /HPF (None Seen); MUCUS,URINE Moderate Strands; SQUAMOUS EPITHELIAL CELL,UR MOD Squamous (<= Few); WBC CLUMPS,URINE NONE SEEN
[2023-07-12 00:23] LABS: CORONAVIRUS 229E-RESP PCR NOT DETECTED; CORONAVIRUS HKU1-RESP PCR NOT DETECTED; CORONAVIRUS NL63-RESP PCR NOT DETECTED; CORONAVIRUS OC43-RESP PCR NOT DETECTED; HUMAN METAPNEUMOVIRUS NOT DETECTED; INFLUENZA A- RESP PCR PANEL NOT DETECTED; RHINOVIRUS/ENTEROVIRUS NOT DETECTED; SARS-CoV-2 -RESP PCR PANEL NOT DETECTED
[2023-07-12 00:24] LABS: B. PARAPERTUSSIS- RESP PCR PAN NOT DETECTED; B. PERTUSSIS- RESP PCR PANEL NOT DETECTED; C. PNEUMONIAE- RESP PCR PANEL NOT DETECTED; INFLUENZA B - RESP PCR PANEL NOT DETECTED; M. PNEUMONIAE- RESP PCR PANEL NOT DETECTED; PARAINFLUENZA VIRUS 1 NOT DETECTED; PARAINFLUENZA VIRUS 2 NOT DETECTED; PARAINFLUENZA VIRUS 3 NOT DETECTED; PARAINFLUENZA VIRUS 4 NOT DETECTED; RSV- RESP PCR PANEL NOT DETECTED
[2023-07-12] MEDS ORDERED: iohexoL-300 100 ML VIAL ONE (00:37)
--- NOTE | 2023-07-12 01:30 | CT Report ---
PROCEDURE: Abdomen/Pelvis WO INDICATIONS: L abd pain fever TECHNIQUE: A CT scan of the abdomen and pelvis was performed without the use of intravenous contrast. Images we re recorded and evaluated at appropriate window settings. Reformats: coronal and sagittal. For radiat ion dose reduction, the following was used: automated exposure control, adjustment of mA and/or kV ac cording to patient size. COMPARISON: 09/07/2020. FINDINGS: Image quality: Diagnostic. Lower chest: Subtle groundglass opacities are seen scattered in posterior lateral aspect of bilateral lung bases. Heart size is normal, no pericardial effusion. Liver: No contour-deforming mass. Gallbladder: Surgically absent. Biliary tree: No intrahepatic or extrahepatic dilation, accounting for age. Spleen: No splenomegaly. Pancreas: No pancreatic ductal dilation. Adrenals: No adrenal nodule. Left adrenal thickening is seen. Kidneys and ureters: There is mild prominence of left renal collecting system and left ureter extendi ng to the left wall of left UPJ. Mild left perinephric fat stranding is also seen. No right-sided carolyn al stones or hydronephrosis. Stomach, bowel and peritoneum: No gastric or small bowel dilation. No abnormal wall thickening. No pa thologic free fluid. No gross repair. Lymph nodes: No central or retroperitoneal adenopathy. Vessels: No infrarenal aortic aneurysm. Reproductive organs: Unremarkable. Bladder: Bladder wall thickness is normal, accounting for underdistention. No calcified bladder stone s. Pelvic lymph nodes: No adenopathy by size criteria. Bones: No aggressive osseous abnormality. Other: No significant ventral or inguinal hernia. IMPRESSION: 1. Mild left-sided hydronephrosis and hydroureter extending to the level of left UVJ. No obstructing stones are seen. Mild left perinephric fat stranding. Finding may represent a passed left renal stone . Left-sided polynephritis cannot be excluded. 2. No right-sided renal stone or hydronephrosis. 3. No bowel obstruction or abnormal bowel wall thickening. No free fluid of free air. Mild constipati on. 4. Subtle groundglass opacities in bilateral bases which may represent atypical pneumonia versus pulm onary edema. Reviewed by: Chris Melgoza MD on 07/12/2023 1:28 AM PDT Approved by: Chris Melgoza MD on 07/12/2023 1:28 AM PDT Station ID: [id number]
[2023-07-12] MEDS ORDERED: cefTRIAXone 1 GM VIAL ONE (03:07)
[2023-07-12] MEDS: HYDROcod/ACETAM 5/325 MG TABLET PO STA (03:11)
[2023-07-12] MEDS: CIPROFLOXACIN 250 MG TABLET PO STA (03:11)
[2023-07-12] MEDS: cefTRIAXone 1 GM in SODIUM CHLORIDE 0.9% MINIBAG 100 ML IV STA (03:12)
[2023-07-12 04:11] VITALS: BP 113/62; O2SAT 99
[2023-07-12 05:21] LABS: BILIRUBIN,URINE NEGATIVE (NEGATIVE); GLUCOSE, URINE (UA) NEGATIVE (NEGATIVE); KETONES,URINE (UA) TRACE mg/dL (NEGATIVE); LEUKOCYTE ESTERASE, URINE SMALL (NEGATIVE); NITRITE,URINE POSITIVE (NEGATIVE); OCCULT BLOOD,URINE MODERATE (NEGATIVE); PROTEIN,URINE 100 mg/dL (NEGATIVE); UROBILINOGEN,URINE 0.2 (NORMAL) E.U./dL (NORMAL)
--- NOTE | 2023-07-12 05:36 | ED Physician Documentation ---
ED Addendum - Addendum Addendum: 07/12/23 05:27 I received signout on this patient from Dr. Shin; please see his note for complete H&P. Briefly, the patient presents with a complaint of left flank pain. She is noted to be febrile (38.3). At time of signout, blood tests have resulted (mild leukocytosis with WBC 11.5, ER abdominal panel is normal except for GFR 65, glucose 105). Serum lactate is normal. Still pending at sign-out are urinalysis, respiratory PCR panel, and CT A/P with IV contrast. The respiratory PCR panel is negative for the viruses tested on this panel including COVID, influenza. Her urinalysis is suggestive of urinary tract infection with 6-10 RBC/hpf, 6-10 WBC/hpf, positive nitrites. Unfortunately, the specimen is contaminated with moderate squamous cells. This does not validate the results, but culture will not be undertaken due to the presence of squamous cells. The CT of the abdomen pelvis was initially planned to be undertaken with IV contrast. However, I was subsequently formed by the medical surgical tech that upon interviewing patient, she indicates she has allergy to IV contrast. Thus, the CT is undertaken without any contrast. The CT is interpreted by the radiologist as "mild left-sided hydronephrosis and hydroureter extending to the level of left UVJ. No obstructing stones are seen. Mild left perinephric fat stranding. Finding may represent a passed left renal stone. Left-sided polynephritis cannot be excluded" (I presume polynephritis is dictation error and meant to read "pyelonephritis"). I discussed these results with the patient. She indicates that her pain is starting to recur, and she is thus given 2 tablets of hydrocodone/acetaminophen p.o. (patient indicates that Percocet is "too strong for me"). Given the abnormal urinalysis, fever, and complaint of left-sided abdominal/flank pain, will treat for pyelonephritis. Given that there is no evidence on the CT scan of acute/ongoing ureteral obstruction, patient is safe and appropriate for outpatient treatment. Return precautions were carefully reviewed. She is given 1 g IV Rocephin and 5 mg p.o. Cipro, and I am electronically submitting prescriptions for Vicodin and ciprofloxacin to patient's pharmacy of choice.
[2023-07-12 05:48] LABS: CLARITY,URINE HAZY (CLEAR)
[2023-07-12 06:03] LABS: BACTERIA,URINE Few /HPF (None Seen); MUCUS,URINE Moderate Strands; SQUAMOUS EPITHELIAL CELL,UR FEW Squamous (<= Few)
--- NOTE | 2023-07-12 13:34 | ED Physician Documentation ---
ED Addendum - Addendum Addendum: 07/12/23 13:33 The patient was seen on July 10 with belly and back pain diagnosed with pyelonephritis and discharged on Cipro. Vitals at the sign time were nonconcerning. Lactate was within the normal range. She did have blood and urine cultures done. The blood culture #2 resulted today showing gram-negative bacilli with a PCR showing E. coli. Urine cultures not resulted. At this point with positive gram-negative bacilli culture, I feel the patient should get reevaluated. Will have the nurses call her and have her return to the ER.
[2023-07-13] MEDS ORDERED: SODIUM CHLORIDE FLUSH 0.9% 10 ML SYRINGE IVP PRN (01:42)
[2023-07-13] MEDS ORDERED: ONDANSETRON 4 MG/2 ML VIAL IVP PRN (01:42)
--- NOTE | 2023-07-13 01:54 | HISTORY & PHYSICAL EXAMINATION ---
Chief Complaint - Chief Complaint Chief Complaint: Back pain, UTI History of Present Illness - History of Present Illness HPI Comment/Other: 57 y old female with no significant PMH presented to ER due to UTI and positive blood culture. Pt came to ER on 07/10 , was diagnosed with acute pyelonephrotis and discharged on cipro. Pt was called to return to ER due to positive blood cultures. Bcx positive for E coli. Pt c/o fever, abdominal pain, back pain jax left side, nausea In ER, pt was given IVF, and rocephin Labs are pending Pt is admitted due to Sepsis, bacteremia, acute pyelonephritis History - Past Medical History Cardiovascular: reports: None Respiratory: reports: None Neuro: reports: None Endocrine/Autoimmune: reports: None GI: reports: None CASING PULLER: reports: None : reports: None HEENT: reports: Other Psych: reports: None Musculoskeletal: reports: None Derm: reports: None MRSA Hx?: No - Past Surgical History /CASING PULLER: reports: section, Tubal ligation - Family & Social History Family History: Mother: Alive and Well, Other family: (2 children have . She did not want to discuss the details and became tearful) Living Situation: Alone (Patient was and she had 2 children but both have , thus she lives alone) Social History Notes: The patient has a PhD in pharmacology. 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 She does not drive a car but has a motorcycle license and drives a motorcycle. She smokes 2 cigars a day. She used to smoke cigarettes, stopped cigarettes 10 years ago. She drinks no alcohol. She did have a past history of marijuuana use, no current use. - Substance History Use: Uses substance without health or social issues: Tobacco - POLST Patient has POLST: No Meds/Allgy - Home Medications Home Medications: Ambulatory Orders Medication Instructions Recorded Confirmed Ciprofloxacin HCl 1 tablet PO BID 14 Days #28 tablet 09/06/20 09/07/20 Acetaminophen [Tylenol] 650 mg PO TID PRN 09/07/20 09/07/20 Ibuprofen [Motrin] 600 mg PO Q6H PRN 09/07/20 09/07/20 oxyCODONE [Roxicodone] 5 mg PO Q4-6H #20 tablet 09/10/20 Ciprofloxacin HCl [Cipro] 500 mg PO BID #14 tablet 07/12/23 HYDROcod/ACETAM 5/325 [[place] 5/325] 1 - 2 tablet PO Q6H PRN #14 tablet 07/12/23 - Allergies Allergies/Adverse Reactions: Allergies Allergy/AdvReac Type Severity Reaction Status Date / Time Iodinated Contrast Media AdvReac Respiratory Verified 07/12/23 00:39 Review of Systems - Other Findings Other Findings: 10 point systems were reviewed and were negative except mentioned in HPI Exam - Physical Exam General Appearance: positive: No acute distress Eyes Bilateral: positive: Normal inspection ENT: positive: ENT inspection nml Neck: positive: Nml inspection Respiratory: positive: Chest non-tender Cardiovascular: positive: Regular rate & rhythm Abdomen: positive: Non-tender, Nml bowel sounds Skin: positive: No rash Extremities: positive: Non-tender, No pedal edema Neurologic/Psychiatric: positive: Oriented x3, Motor nml Conclusion/Plan - Lab Results Fish Bones: 07/11/23 22:51 07/11/23 22:51 - Other Other Results/Comments: A: Sepsis Bacteremia Acute pyelonephrotis Leukocytosis Plan; Admit to med surg with tele Follow cx Start NS @ 100 cc/h Start Rocephin Monitor lactic acid Labs pending DVT prophylaxic: SCD Full code Pt is admitted as inpatient as more than 2 midnight stay is expected
[2023-07-13] MEDS ORDERED: SODIUM CHLORIDE 0.9% 1,000 ML IV SCH (02:00)
[2023-07-13] MEDS ORDERED: MORPHINE 10 MG/ML VIAL IVP PRN (02:07)
[2023-07-13] MEDS ORDERED: SODIUM CHLORIDE FLUSH 0.9% 10 ML SYRINGE IVP SCH (09:00)
[2023-07-13] MEDS ORDERED: cefTRIAXone 1 GM in SODIUM CHLORIDE 0.9% MINIBAG 100 ML IV SCH (09:00)
== END 2023-07-12 04:11 | disposition home or self-care (01) ==
LOC: ED 22:10
DX: N12 Tubulo-interstitial nephritis, not specified as acute or chronic (principal); F17.200 Nicotine dependence, unspecified, uncomplicated
CPT/HCPCS: 36415; 74176; 80053; 81001; 83605; 85025; 87040; 87077; 87086; 87154; 87181; 87633; 96361; 96365; 96375; 99284; A9270; J1170; 81003

== ENCOUNTER 2023-07-13 00:24 | Outpatient (CLI) | payer MEDICAID | END 2023-07-13 23:59 | disposition critical access hospital (66) | LOC: EMS 00:24 | DX: R50.9 Fever, unspecified (principal); R53.1 Weakness; R52 Pain, unspecified | CPT/HCPCS: A0425; A0429; A0999 ==

== ENCOUNTER 2023-07-13 00:32 | Emergency (ER) | payer MEDICAID ==
[2023-07-13] MEDS ORDERED: cefTRIAXone 2 GM VIAL ONE (01:27)
[2023-07-13] MEDS: KETOROLAC 15 MG/ML VIAL IVP STA (01:29)
[2023-07-13] MEDS: ONDANSETRON 4 MG/2 ML VIAL IVP STA (01:29)
[2023-07-13] MEDS: cefTRIAXone 2 GM in SODIUM CHLORIDE 0.9% MINIBAG 100 ML IV STA (01:30)
[2023-07-13] MEDS: SODIUM CHLORIDE 0.9% 2,000 ML IV STA (01:31)
--- NOTE | 2023-07-13 01:44 | ED Physician Documentation ---
History of Present Illness - Stated complaint Stated Complaint: SOA - Chief complaint Chief Complaint: General - History obtained from History obtained from: Patient - Additonal information Additional information: 57yF was called back after her blood culture from ED visit on 07/10 grew GNR concerning for e coli septicemia. Patient has been having persistent fevers at home, full body aches and has been unable to fill her oral antibiotics since discharge. 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 : None HEENT: Other Psych: None Musculoskeletal: None Derm: None - Past Surgical History Past Surgical History: Yes /REPAIRER KILN CAR: section, Tubal ligation - Present Medications Home Medications: Ambulatory Orders Medication Instructions Recorded Confirmed Ciprofloxacin HCl 1 tablet PO BID 14 Days #28 tablet 09/06/20 09/07/20 Acetaminophen [Tylenol] 650 mg PO TID PRN 09/07/20 09/07/20 Ibuprofen [Motrin] 600 mg PO Q6H PRN 09/07/20 09/07/20 oxyCODONE [Roxicodone] 5 mg PO Q4-6H #20 tablet 09/10/20 Ciprofloxacin HCl [Cipro] 500 mg PO BID #14 tablet 07/12/23 HYDROcod/ACETAM 5/325 [[place] 5/325] 1 - 2 tablet PO Q6H PRN #14 tablet 07/12/23 - Allergies Allergies/Adverse Reactions: Allergies Allergy/AdvReac Type Severity Reaction Status Date / Time Iodinated Contrast Media AdvReac Respiratory Verified 07/12/23 00:39 - Social History Does the pt smoke?: Yes Smoking Status: Current every day smoker Does the pt drink ETOH?: No Does the pt have substance abuse?: Yes - Immunizations Immunizations are current?: Yes - POLST Patient has POLST: No PD ED PE NORMAL - Vitals Vital signs reviewed: Yes - General General: Alert and oriented X 3, No acute distress, Well developed/nourished - HEENT HEENT: Atraumatic, PERRL, EOMI - Cardiac Cardiac: Other (tachycardic rate, regular rhythm) - Respiratory Respiratory: No respiratory distress, Clear bilaterally - Abdomen Abdomen: Non tender, Non distended, Other (discomfort to suprapubic palpation) - Derm Derm: Normal color, Warm and dry - Extremities Extremities: No deformity - Neuro Neuro: No motor deficit, No sensory deficit - Psych Psych: Normal mood, Normal affect Results - Vitals Vitals: Vital Signs - 24 hr 07/13/23 00:35 Temperature 37.5 C Heart Rate 99 Respiratory 22 Rate O2 Saturation 97 Oxygen O2 Source Room air PD Medical Decision Making - ED course ED course: Patient presents for admission for urosepsis due to GNR e coli on blood culture. d/w telehealth for admission. admission labs ordered. Departure - Departure Disposition: [facility] DC/Xfer Clinical Impression: Septicemia, UTI (urinary tract infection) Condition: Fair Forms: PCP List
[2023-07-13 01:55] LABS: BASOPHILS % (AUTO) 0.2 %; EOSINOPHILS # (AUTO) 0.1 10^3/uL (0.0-0.7); EOSINOPHILS % (AUTO) 0.7 %; HCT - HEMATOCRIT 36.8 % (37.0-47.0); HGB - HEMOGLOBIN 11.4 g/dL (12.0-16.0); LYMPHOCYTES # (AUTO) 1.6 10^3/uL (1.5-3.5); LYMPHOCYTES % (AUTO) 17.4 %; MEAN CORPUSCULAR HEMOGLOBIN 28.2 pg (27.0-31.0); MEAN CORPUSCULAR VOLUME 91.1 fL (81.0-99.0); MEAN PLATELET VOLUME 10.3 fL (7.9-10.8); MONOCYTES % (AUTO) 10.7 %; NEUTROPHILS # (AUTO) 6.5 10^3/uL (1.5-6.6); NEUTROPHILS % (AUTO) 70.5 %; PLT - PLATELET COUNT 218 10^3/uL (130-450); RED BLOOD COUNT 4.04 10^6/uL (4.20-5.40); RED CELL DISTRIBUTION WIDTH 12.4 % (12.0-15.0); WHITE BLOOD COUNT 9.2 x10^3/uL (4.8-10.8)
[2023-07-13 02:08] LABS: ALBUMIN 3.7 g/dL (3.2-5.5); ALBUMIN/GLOBULIN RATIO 1.6 (1.0-2.2); BILIRUBIN,TOTAL 0.3 mg/dL (0.2-1.0); CALCIUM 8.8 mg/dL (8.5-10.3); CREATININE 0.9 mg/dL (0.6-1.3); POTASSIUM 3.6 mmol/L (3.5-4.5)
[2023-07-13 02:24] VITALS: BP 123/61; O2SAT 98
[2023-07-13 03:13] LABS: BILIRUBIN,URINE NEGATIVE (NEGATIVE); GLUCOSE, URINE (UA) NEGATIVE (NEGATIVE); KETONES,URINE (UA) NEGATIVE (NEGATIVE); LEUKOCYTE ESTERASE, URINE SMALL (NEGATIVE); NITRITE,URINE NEGATIVE (NEGATIVE); OCCULT BLOOD,URINE MODERATE (NEGATIVE); PH,URINE 6.5 PH (5.0-7.5); PROTEIN,URINE TRACE mg/dL (NEGATIVE); UROBILINOGEN,URINE 0.2 (NORMAL) E.U./dL (NORMAL)
[2023-07-13] MEDS: IBUPROFEN 600 MG TABLET PO STA (03:19)
[2023-07-13 03:29] LABS: BACTERIA,URINE Rare /HPF (None Seen); CLARITY,URINE CLEAR (CLEAR); SQUAMOUS EPITHELIAL CELL,UR MOD Squamous (<= Few)
--- NOTE | 2023-07-15 11:04 | ED Physician Documentation ---
ED Addendum - Addendum Addendum: 07/15/23 11:03 Pt left AMA after telehealth hospitalist evaluation and admit orders but prior to transfer to med surg unit.
== END 2023-07-13 04:05 | disposition left against medical advice (07) ==
LOC: ED 00:32
DX: A41.51 Sepsis due to Escherichia coli [E. coli] (principal); N39.0 Urinary tract infection, site not specified; F17.290 Nicotine dependence, other tobacco product, uncomplicated
CPT/HCPCS: 36415; 80053; 81001; 83605; 83690; 85025; 87040; 96365; 96375; 99285; A9270; 81003; 87086; 93005

== ENCOUNTER 2023-07-13 14:48 | Inpatient (IN) | payer MEDICAID ==
--- NOTE | 2023-07-13 15:07 | ED Physician Documentation ---
History of Present Illness - Stated complaint Stated Complaint: BLOOD IN URINE/CP - Chief complaint Chief Complaint: General - History obtained from History obtained from: Patient - Additonal information Additional information: She was initially seen in the evening of July 10 for left-sided abdominal pain and fever. Subsequently was found to have an infected urine and signs of pyelonephritis on the left on CT without obstruction. She was administered Rocephin and sent home with a prescription for Cipro. She was called back and there was some delay in her coming back due to positive blood cultures. She was seen overnight and it looks like she was administered Rocephin and admitted. Patient said she did not get antibiotics on the second visit and was unhappy with her care so ended up signing out AMA but returns today with this severe left-sided pain still going on. PD PAST MEDICAL HISTORY - Past Medical History Past Medical History: Yes Cardiovascular: None Respiratory: None Neuro: None Endocrine/Autoimmune: None GI: None RAILROAD COOK: None : None HEENT: Other Psych: None Musculoskeletal: None Derm: None - Past Surgical History Past Surgical History: Yes General: Cholecystectomy, Appendectomy /RAILROAD COOK: section, Tubal ligation - Present Medications Home Medications: Ambulatory Orders Medication Instructions Recorded Confirmed Ciprofloxacin HCl 1 tablet PO BID 14 Days #28 tablet 09/06/20 09/07/20 Acetaminophen [Tylenol] 650 mg PO TID PRN 09/07/20 09/07/20 Ibuprofen [Motrin] 600 mg PO Q6H PRN 09/07/20 09/07/20 oxyCODONE [Roxicodone] 5 mg PO Q4-6H #20 tablet 09/10/20 Ciprofloxacin HCl [Cipro] 500 mg PO BID #14 tablet 07/12/23 HYDROcod/ACETAM 5/325 [[place] 5/325] 1 - 2 tablet PO Q6H PRN #14 tablet 07/12/23 - Allergies Allergies/Adverse Reactions: Allergies Allergy/AdvReac Type Severity Reaction Status Date / Time Iodinated Contrast Media AdvReac Respiratory Verified 07/13/23 14:52 - Social History Does the pt smoke?: No Smoking Status: Former smoker Does the pt drink ETOH?: No Does the pt have substance abuse?: No - Immunizations Immunizations are current?: No Immunizations: Other immun not current - POLST Patient has POLST: No PD ED PE NORMAL - Vitals Vital signs reviewed: Yes - General General: Alert and oriented X 3, Other (She appears uncomfortable and is tachypneic and tachycardic) - Cardiac Cardiac: RRR, No murmur - Respiratory Respiratory: Other (Tachypneic but with clear lungs) - Abdomen Abdomen: Other (Tender over the left abdomen without surgical signs also tender over the left CVA) - Extremities Extremities: No edema, No calf tenderness / cord - Neuro Neuro: Alert and oriented X 3, Normal speech Results - Vitals Vitals: Vital Signs - 24 hr 07/13/23 14:52 Temperature 37 C Heart Rate 99 Respiratory 24 Rate Blood Pressure 137/59 H O2 Saturation 100 Oxygen O2 Source Room air - EKG (time done) 1523 EKG releavant findings:: EKG personally interpreted by author of this note. Relevant findings are: Rate: Rate (enter#) (97) Rhythm: NSR [place]: Normal Intervals: Normal [place] QRS: Normal Ischemia: Normal ST segments - Labs Labs: Laboratory Tests 07/13/23 07/13/23 07/13/23 15:12 15:12 15:12 WBC 7.5 RBC 3.89 L Hgb 11.0 L Hct 35.4 L MCV 91.0 MCH 28.3 MCHC 31.1 L RDW 12.5 Plt Count 200 MPV 9.8 Neut # (Auto) 5.4 Lymph # (Auto) 1.1 L [place] # (Auto) 0.8 Eos # (Auto) 0.1 Baso # (Auto) 0.0 Absolute Nucleated RBC 0.00 Nucleated RBC % 0.0 Sodium 139 Potassium 3.9 Chloride 109 Carbon Dioxide 24 Anion Gap 6.0 BUN 11 Creatinine 0.8 Estimated GFR (MDRD) 74 L Glucose 140 H Lactic Acid 1.0 Calcium 9.1 Total Bilirubin 0.2 AST 19 ALT 23 Alkaline Phosphatase 90 Total Protein 6.3 L Albumin 3.6 Globulin 2.7 Albumin/Globulin Ratio 1.3 - Rads (name of study) Single view chest x-ray is unremarkable Relevant Findings:: Final report received, EMP independent interpretation of test PD Medical Decision Making - ED course ED course: She signed out AGAINST MEDICAL ADVICE last night but returns now wanting care. 57-year-old woman with E. coli bacteremia related to pyelonephritis returns with significant pain. She is technically still septic with tachypnea and tachycardia. Wewill obtain chest radiography and an EKG. I do not think there is a need for repeat abdominal imaging nor is there a repeat need for repeat blood cultures as she just had repeat blood cultures early this morning. They are not positive at the time of this dictation. We will administer pain medication and IV ceftriaxone with plan to admit her. Workup demonstrates CBC with mild anemia, chronic, no leukocytosis. CMP unremarkable with no lactic acidosis. Spoke with Dr. Gee for admission at 4:05 PM. Departure - Departure Disposition: [facility] DC/Xfer Clinical Impression: Pyelonephritis, E coli bacteremia Condition: Stable
[2023-07-13 15:20] LABS: BASOPHILS % (AUTO) 0.3 %; EOSINOPHILS # (AUTO) 0.1 10^3/uL (0.0-0.7); EOSINOPHILS % (AUTO) 1.5 %; HCT - HEMATOCRIT 35.4 % (37.0-47.0); LYMPHOCYTES # (AUTO) 1.1 10^3/uL (1.5-3.5); LYMPHOCYTES % (AUTO) 14.7 %; MEAN CORPUSCULAR HEMOGLOBIN 28.3 pg (27.0-31.0); MEAN CORPUSCULAR HGB CONC 31.1 g/dL (32.0-36.0); MEAN PLATELET VOLUME 9.8 fL (7.9-10.8); MONOCYTES # (AUTO) 0.8 10^3/uL (0.0-1.0); MONOCYTES % (AUTO) 10.9 %; NEUTROPHILS # (AUTO) 5.4 10^3/uL (1.5-6.6); NEUTROPHILS % (AUTO) 72.3 %; PLT - PLATELET COUNT 200 10^3/uL (130-450); RED BLOOD COUNT 3.89 10^6/uL (4.20-5.40); RED CELL DISTRIBUTION WIDTH 12.5 % (12.0-15.0); WHITE BLOOD COUNT 7.5 x10^3/uL (4.8-10.8)
[2023-07-13] MEDS: HYDROmorphone 1 MG/ML CARPUJECT IVP STA (15:27)
[2023-07-13] MEDS: cefTRIAXone 1 GM VIAL IVP STA (15:27)
[2023-07-13] MEDS: SODIUM CHLORIDE 0.9% 1,000 ML IV STA (15:28)
[2023-07-13 15:30] LABS: ALBUMIN 3.6 g/dL (3.2-5.5); ALBUMIN/GLOBULIN RATIO 1.3 (1.0-2.2); BILIRUBIN,TOTAL 0.2 mg/dL (0.2-1.0); CALCIUM 9.1 mg/dL (8.5-10.3); CREATININE 0.8 mg/dL (0.6-1.3); POTASSIUM 3.9 mmol/L (3.5-4.5); TOTAL PROTEIN 6.3 g/dL (6.4-8.9)
[2023-07-13] MEDS ORDERED: ACETAMINOPHEN 325 MG TABLET PO PRN (16:07)
[2023-07-13] MEDS ORDERED: ONDANSETRON ODT 4 MG TABLET TL PRN (16:07)
--- NOTE | 2023-07-13 16:11 | XRAY Report ---
PROCEDURE: Chest 1V INDICATIONS: soa TECHNIQUE: One view of the chest was acquired. COMPARISON: None. FINDINGS: Surgical changes and devices: None. Lungs and pleura: No pleural effusions or pneumothorax. Lungs are clear. Mediastinum: Mediastinal contours appear normal. Heart size is normal. Bones and chest wall: No suspicious bony lesions. Overlying soft tissues appear unremarkable. IMPRESSION: No acute cardiopulmonary process. Reviewed by: Blake Thompson MD on 07/13/2023 3:10 PM AKDT Approved by: Blake Thompson MD on 07/13/2023 3:10 PM AKDT Station ID: [id number]
[2023-07-13 16:59] LABS: BILIRUBIN,URINE NEGATIVE (NEGATIVE); GLUCOSE, URINE (UA) NEGATIVE (NEGATIVE); KETONES,URINE (UA) NEGATIVE (NEGATIVE); LEUKOCYTE ESTERASE, URINE NEGATIVE (NEGATIVE); NITRITE,URINE NEGATIVE (NEGATIVE); OCCULT BLOOD,URINE SMALL (NEGATIVE); PROTEIN,URINE NEGATIVE (NEGATIVE); UROBILINOGEN,URINE 0.2 (NORMAL) E.U./dL (NORMAL)
[2023-07-13 17:02] LABS: CLARITY,URINE CLEAR (CLEAR)
[2023-07-13 17:09] LABS: RBC,URINE 0-5 /HPF (0-5)
[2023-07-13 17:10] LABS: AMPHETAMINE SCREEN,URINE POSITIVE (NEGATIVE); BACTERIA,URINE None Seen /HPF (None Seen); BARBITURATE SCREEN,UR NEGATIVE (NEGATIVE); BENZODIAZEPINES SCREEN, URINE NEGATIVE (NEGATIVE); BUPRENORPHINE SCREEN, URINE NEGATIVE (NEGATIVE); COCAINE SCREEN URINE NEGATIVE (NEGATIVE); METHADONE SCREEN, URINE NEGATIVE (NEGATIVE); METHAMPHETAMINES SCREEN, URINE POSITIVE (NEGATIVE); OPIATE SCREEN, URINE POSITIVE (NEGATIVE); OXYCODONE SCREEN, URINE NEGATIVE (NEGATIVE); SQUAMOUS EPITHELIAL CELL,UR RARE Squamous (<= Few); THC CANNABINOID SCREEN, URINE NEGATIVE (NEGATIVE); TRICYCLIC ANTIDEPRESSANT,URINE NEGATIVE (NEGATIVE)
--- NOTE | 2023-07-13 17:24 | HISTORY & PHYSICAL EXAMINATION ---
Chief Complaint - Chief Complaint Chief Complaint: Bacteremia History of Present Illness - Admitted From Admitted From:: ED - History Obtained From Records Reviewed: Yes History obtained from: Patient Exam Limitations: None - History of Present Illness HPI Comment/Other: Patient is a 57-year-old female with no significant past medical history who presented to the ED after she was instructed to return for positive gram-nega tive bacteremia. Her primary complaint was flank pain due to her known pyelonephritis. Patient reportedly left AMA during a prior visit earlier in the day after being admitted. She was diagnosed with E. coli bacteremia and was initially started on IV ceftriaxone. During my evaluation she does endorse some left lower quadrant abdominal pain. She denies any fever or chills. The plan was discussed with her in detail. Her CT abdomen/pelvis results were reviewed with her. History - Past Medical History Cardiovascular: reports: None Respiratory: reports: None Neuro: reports: None Endocrine/Autoimmune: reports: None GI: reports: None YARDING ENGINEER: reports: None : reports: None HEENT: reports: Other Psych: reports: None Musculoskeletal: reports: None Derm: reports: None MRSA Hx?: No - Past Surgical History General: reports: Cholecystectomy, Appendectomy /YARDING ENGINEER: reports: section, Tubal ligation - Family & Social History Family History: Mother: Alive and Well, Other family: (2 children have . She did not want to discuss the details and became tearful) Living Situation: Alone (Patient was and she had 2 children but both have , thus she lives alone) Social History Notes: The patient has a PhD in pharmacology. 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 She does not drive a car but has a motorcycle license and drives a motorcycle. She smokes 2 cigars a day. She used to smoke cigarettes, stopped cigarettes 10 years ago. She drinks no alcohol. She did have a past history of marijuuana use, no current use. - Substance History Use: Uses substance without health or social issues: Tobacco - POLST Patient has POLST: No Meds/Allgy - Home Medications Home Medications: Ambulatory Orders Medication Instructions Recorded Confirmed Ciprofloxacin HCl 1 tablet PO BID 14 Days #28 tablet 09/06/20 09/07/20 Acetaminophen [Tylenol] 650 mg PO TID PRN 09/07/20 09/07/20 Ibuprofen [Motrin] 600 mg PO Q6H PRN 09/07/20 09/07/20 oxyCODONE [Roxicodone] 5 mg PO Q4-6H #20 tablet 09/10/20 Ciprofloxacin HCl [Cipro] 500 mg PO BID #14 tablet 07/12/23 HYDROcod/ACETAM 5/325 [[place] 5/325] 1 - 2 tablet PO Q6H PRN #14 tablet 07/12/23 - Allergies Allergies/Adverse Reactions: Allergies Allergy/AdvReac Type Severity Reaction Status Date / Time Iodinated Contrast Media AdvReac Respiratory Verified 07/13/23 14:52 Review of Systems - Constitutional Constitutional: denies: Fever, Chills - Gastrointestinal Gastrointestinal: reports: Abdominal pain - All Other Systems All Other Systems: reports: Reviewed and negative Exam - Vital Signs Reviewed Vital Signs: Yes Vital Signs: Vital Signs x48h Temp Pulse Pulse Resp BP BP Pulse Ox 07/13/23 16:49 36.8 C 70 17 142/66 H 99 07/13/23 14:52 37 C 99 24 137/59 H 100 - Physical Exam General Appearance: positive: No acute distress, Alert, Mild distress Respiratory: positive: Chest non-tender, No respiratory distress, Breath sounds nml Cardiovascular: positive: No murmur, No gallop, Tachycardia Abdomen: positive: No organomegaly, Tenderness Sepsis Event Note (H) - Evaluation Current Stage of Sepsis: Sepsis Possible source of Sepsis: positive: Genitourinary Conclusion/Plan - Problem List (1) E coli bacteremia Conclusion/Plan: --Sepsis secondary to E. coli bacteremia. Will start on IV ceftriaxone 2 g daily. Source is likely her urine. --Continue close monitoring of vitals. She will need a total of 14 days of antibiotics. --CXR unremarkable. (2) Pyelonephritis Conclusion/Plan: --Mild left sided hydronephrosis and hydroureter seen on CT abd.pelvis. No obstructing stones. --Urine showing no evidence of bacteria but was taken after she had already received IV antibiotics. - Lab Results Fish Bones: 07/13/23 15:12 07/13/23 15:12
[2023-07-13] MEDS: SODIUM CHLORIDE FLUSH 0.9% 10 ML SYRINGE IVP SCH (22:04)
[2023-07-13] MEDS: SODIUM CHLORIDE FLUSH 0.9% 10 ML SYRINGE IVP PRN (22:04)
[2023-07-13] MEDS: HYDROmorphone 0.5 MG/0.5 ML SYRINGE IVP PRN (22:04)
[2023-07-14] MEDS: HYDROcod/ACETAM 5/325 MG TABLET PO PRN (09:01)
[2023-07-14] MEDS: cefTRIAXone 2 GM in SODIUM CHLORIDE 0.9% MINIBAG 100 ML IV SCH (09:01)
[2023-07-14] MEDS: ENOXAPARIN 40 MG/0.4 ML SYRINGE SUBQ SCH (09:02)
--- NOTE | 2023-07-14 09:09 | PROVIDER PROGRESS NOTE ---
Assessment/Plan - Problem List (1) E coli bacteremia Assessment/Plan: (1) E coli bacteremia Conclusion/Plan: --Sepsis secondary to E. coli bacteremia. Will start on IV ceftriaxone 2 g daily. Source is likely her urine. --Continue close monitoring of vitals. She will need a total of 14 days of antibiotics. --CXR unremarkable. --Repeat blood cultures from 07/12 showing no growth to date. Blood culture from 07/10 pending, awaiting final results. --Overnight patient was febrile. Will monitor for an additional 24 hours to ensure she is fever free and resolution of final blood cultures. (2) Pyelonephritis Conclusion/Plan: --Mild left sided hydronephrosis and hydroureter seen on CT abd.pelvis. No obstructing stones. --Urine showing no evidence of bacteria but was taken after she had already received IV antibiotics. Dispo: Inpatient. - Current Meds Current Meds: Current Medications Generic Name Dose Route Start Last Admin Trade Name Freq PRN Reason Stop Dose Admin Hydrocodone Bitart/Acetaminophen 1 tab 07/13/23 16:07 07/14/23 09:01 Hydrocod/Acetam 5/325 Mg Tablet PO 1 tab Q4HR PRN Administration Pain 5 to 7 Enoxaparin Sodium 40 mg 07/14/23 09:00 07/14/23 09:02 Enoxaparin 40 Mg/0.4 Ml Syringe SUBQ Not Given DAILY GONZALO Hydromorphone HCl 0.5 mg 07/13/23 16:07 07/13/23 22:04 Hydromorphone 0.5 Mg/0.5 Ml Syringe IVP 0.5 mg Q2H PRN Administration Pain 8 to 10 Ceftriaxone Sodium 2 gm/ 100 mls @ 200 mls/hr 07/14/23 09:00 07/14/23 09:01 Sodium Chloride IV 07/27/23 09:29 200 mls/hr DAILY GONZALO Administration Sodium Chloride 10 ml 07/13/23 16:07 07/13/23 22:04 Sodium Chloride Flush 0.9% 10 Ml Syringe IVP 10 ml PRN PRN Administration NEEDED PER PROVIDER ORDERS Sodium Chloride 10 ml 07/13/23 17:00 07/14/23 09:03 Sodium Chloride Flush 0.9% 10 Ml Syringe IVP 10 ml 0100,0900,1700 GONZALO Administration - Lab Result Fish Bone Diagrams: 07/13/23 15:12 07/13/23 15:12 - Additional Planning My Orders: My Active Orders 07/13/23 16:07 Activity Orders [RC] Q2HR IO [RC] IOSHIFT Incentive Spirometry - RT [RC] .TID Initiate Bowel Care Protocol [RC] .protocol Initiate Line Care Protocol [RC] QSHIFT Initiate Personal Care Protoco [RC] .protocol Oxygen Therapy [RC] .PRN Vital Signs [RC] 0800,1600,0000 Acetaminophen [Tylenol] 650 mg PO Q4HR PRN HYDROcod/ACETAM 5/325 [[place] 5/325] 1 tab PO Q4HR PRN HYDROmorphone 0.5MG SYRINGE [Dilaudid 0.5MG Syringe] 0.5 mg IVP Q2H PRN Ondansetron Inj [Zofran Inj] 4 mg IVP Q6HR PRN Ondansetron Odt [Zofran Odt] 4 mg TL Q6HR PRN Sodium Chloride Flush 0.9% [Normal Saline Flush 0.9%] 10 ml IVP PRN PRN Code Status [OTHERS] Routine Condition of Patient [OTHERS] Routine DVT Prophylaxis [OTHERS] Routine 07/13/23 Dinner Regular Diet [DIET] 07/13/23 17:00 Sodium Chloride Flush 0.9% [Normal Saline Flush 0.9%] 10 ml IVP 0100,0900,1700 07/14/23 09:00 Enoxaparin [Lovenox] 40 mg SUBQ DAILY cefTRIAXone [Rocephin] 2 gm Sodium Chloride 0.9% Minibag [Normal Saline 0.9% Minibag] 100 ml IV DAILY 07/15/23 05:00 BMP - BASIC METABOLIC PANEL [CHEM] DAILYLAB CBC [CBC - COMP BLD CT W/AUTO DIFF] [HEME] DAILYLAB 07/16/23 05:00 BMP - BASIC METABOLIC PANEL [CHEM] DAILYLAB CBC [CBC - COMP BLD CT W/AUTO DIFF] [HEME] DAILYLAB 07/17/23 05:00 BMP - BASIC METABOLIC PANEL [CHEM] DAILYLAB CBC [CBC - COMP BLD CT W/AUTO DIFF] [HEME] DAILYLAB 07/18/23 05:00 BMP - BASIC METABOLIC PANEL [CHEM] DAILYLAB CBC [CBC - COMP BLD CT W/AUTO DIFF] [HEME] DAILYLAB 07/19/23 05:00 BMP - BASIC METABOLIC PANEL [CHEM] DAILYLAB CBC [CBC - COMP BLD CT W/AUTO DIFF] [HEME] DAILYLAB Subjective - Subjective Patient Reports: Other (Fatigue this AM. Febrile ON. Pain is improving in her LLQ.) Objective Vital Signs: Vital Signs - 24 hr 07/13/23 07/13/23 07/13/23 14:52 16:49 22:00 Temperature 37 C 36.8 C 38.8 C H Heart Rate 99 Heart Rate [ Brachial] Heart Rate [ 70 Radial] Respiratory 24 17 Rate Blood Pressure 137/59 H Blood Pressure 142/66 H [Left Brachial artery] O2 Saturation 100 99 07/13/23 07/14/23 23:27 08:00 Temperature 38.2 C H 37.5 C Heart Rate Heart Rate [ 86 97 Brachial] Heart Rate [ Radial] Respiratory 18 18 Rate Blood Pressure Blood Pressure 124/60 116/64 [Left Brachial artery] O2 Saturation 97 97 Oxygen O2 Source Room air I&O (Last 24 Hrs): Intake and Output Totals x24h 07/12/23 07/13/23 07/14/23 23:59 23:59 23:59 Intake Total 2860 Balance 2860 General: Alert, Oriented x3, Cooperative, No acute distress Cardiovascular: Regular rate, Normal S1, Normal S2, No murmurs Respiratory: Chest non-tender, No respiratory distress, Breath sounds nml Abdomen: Other (LLQ tenderness.) - Results Results: Laboratory Results WBC 7.5 x10^3/uL (4.8-10.8) 07/13/23 15:12 RBC 3.89 10^6/uL (4.20-5.40) L 07/13/23 15:12 Hgb 11.0 g/dL (12.0-16.0) L 07/13/23 15:12 Hct 35.4 % (37.0-47.0) L 07/13/23 15:12 MCV 91.0 fL (81.0-99.0) 07/13/23 15:12 MCH 28.3 pg (27.0-31.0) 07/13/23 15:12 MCHC 31.1 g/dL (32.0-36.0) L 07/13/23 15:12 RDW 12.5 % (12.0-15.0) 07/13/23 15:12 Plt Count 200 10^3/uL (130-450) 07/13/23 15:12 MPV 9.8 fL (7.9-10.8) 07/13/23 15:12 Neut # (Auto) 5.4 10^3/uL (1.5-6.6) 07/13/23 15:12 Lymph # (Auto) 1.1 10^3/uL (1.5-3.5) L 07/13/23 15:12 [place] # (Auto) 0.8 10^3/uL (0.0-1.0) 07/13/23 15:12 Eos # (Auto) 0.1 10^3/uL (0.0-0.7) 07/13/23 15:12 Baso # (Auto) 0.0 10^3/uL (0.0-0.1) 07/13/23 15:12 Absolute Nucleated RBC 0.00 x10^3/uL 07/13/23 15:12 Nucleated RBC % 0.0 /100WBC 07/13/23 15:12 Sodium 139 mmol/L (135-145) 07/13/23 15:12 Potassium 3.9 mmol/L (3.5-4.5) 07/13/23 15:12 Chloride 109 mmol/L (101-111) 07/13/23 15:12 Carbon Dioxide 24 mmol/L (21-32) 07/13/23 15:12 Anion Gap 6.0 (6-13) 07/13/23 15:12 BUN 11 mg/dL (6-20) 07/13/23 15:12 Creatinine 0.8 mg/dL (0.6-1.3) 07/13/23 15:12 Estimated GFR (MDRD) 74 (>89) L 07/13/23 15:12 Glucose 140 mg/dL (74-104) H 07/13/23 15:12 Lactic Acid 1.0 mmol/L (0.5-2.2) 07/13/23 15:12 Calcium 9.1 mg/dL (8.5-10.3) 07/13/23 15:12 Total Bilirubin 0.2 mg/dL (0.2-1.0) 07/13/23 15:12 AST 19 IU/L (10-42) 07/13/23 15:12 ALT 23 IU/L (10-60) 07/13/23 15:12 Alkaline Phosphatase 90 IU/L (42-121) 07/13/23 15:12 Total Protein 6.3 g/dL (6.4-8.9) L 07/13/23 15:12 Albumin 3.6 g/dL (3.2-5.5) 07/13/23 15:12 Globulin 2.7 g/dL (2.1-4.2) 07/13/23 15:12 Albumin/Globulin Ratio 1.3 (1.0-2.2) 07/13/23 15:12 Urine Color YELLOW 07/13/23 16:35 Urine Clarity CLEAR (CLEAR) 07/13/23 16:35 Urine pH 7.0 PH (5.0-7.5) 07/13/23 16:35 Ur Specific [place] 1.015 (1.002-1.030) 07/13/23 16:35 Urine Protein NEGATIVE mg/dL (NEGATIVE) 07/13/23 16:35 Urine Glucose (UA) NEGATIVE mg/dL (NEGATIVE) 07/13/23 16:35 Urine Ketones NEGATIVE mg/dL (NEGATIVE) 07/13/23 16:35 Urine Occult Blood SMALL (NEGATIVE) H 07/13/23 16:35 Urine Nitrite NEGATIVE (NEGATIVE) 07/13/23 16:35 Urine Bilirubin NEGATIVE (NEGATIVE) 07/13/23 16:35 Urine Urobilinogen 0.2 (NORMAL) E.U./dL (NORMAL) 07/13/23 16:35 Ur Leukocyte Esterase NEGATIVE (NEGATIVE) 07/13/23 16:35 Urine RBC 0-5 /HPF (0-5) 07/13/23 16:35 Urine WBC 4-5 /HPF (0-5) 07/13/23 16:35 Ur Squamous Epith Cells RARE Squamous (<= Few) 07/13/23 16:35 Urine Bacteria None Seen /HPF (None Seen) 07/13/23 16:35 Ur Microscopic Review INDICATED 07/13/23 16:35 Urine Culture Comments NOT INDICATED 07/13/23 16:35 Urine Opiates Screen POSITIVE (NEGATIVE) H 07/13/23 16:35 Ur Buprenorphine Scrn NEGATIVE (NEGATIVE) 07/13/23 16:35 Ur Oxycodone Screen NEGATIVE (NEGATIVE) 07/13/23 16:35 Urine Methadone Screen NEGATIVE (NEGATIVE) 07/13/23 16:35 Ur Barbiturates Screen NEGATIVE (NEGATIVE) 07/13/23 16:35 Ur Tricyclics Screen NEGATIVE (NEGATIVE) 07/13/23 16:35 Ur Phencyclidine Scrn NEGATIVE (NEGATIVE) 07/13/23 16:35 Ur Amphetamine Screen POSITIVE (NEGATIVE) H 07/13/23 16:35 U Methamphetamines Scrn POSITIVE (NEGATIVE) H 07/13/23 16:35 U Benzodiazepines Scrn NEGATIVE (NEGATIVE) 07/13/23 16:35 Urine Cocaine Screen NEGATIVE (NEGATIVE) 07/13/23 16:35 U Cannabinoids Screen NEGATIVE (NEGATIVE) 07/13/23 16:35 Ur Drug Screen Comment CUTOFF CONC BELOW: 07/13/23 16:35 Sepsis Event Note (H) - Evaluation Current Stage of Sepsis: Sepsis Possible source of Sepsis: positive: Genitourinary
[2023-07-14] MEDS: ONDANSETRON 4 MG/2 ML VIAL IVP PRN (22:42)
[2023-07-15 01:23] VITALS: O2SAT 96
[2023-07-15 07:33] LABS: BASOPHILS % (AUTO) 0.4 %; EOSINOPHILS # (AUTO) 0.2 10^3/uL (0.0-0.7); EOSINOPHILS % (AUTO) 4.1 %; HCT - HEMATOCRIT 34.4 % (37.0-47.0); HGB - HEMOGLOBIN 10.8 g/dL (12.0-16.0); LYMPHOCYTES # (AUTO) 1.8 10^3/uL (1.5-3.5); LYMPHOCYTES % (AUTO) 35.3 %; MEAN CORPUSCULAR HEMOGLOBIN 28.6 pg (27.0-31.0); MEAN CORPUSCULAR HGB CONC 31.4 g/dL (32.0-36.0); MEAN CORPUSCULAR VOLUME 91.2 fL (81.0-99.0); MEAN PLATELET VOLUME 9.5 fL (7.9-10.8); MONOCYTES # (AUTO) 0.9 10^3/uL (0.0-1.0); MONOCYTES % (AUTO) 16.4 %; NEUTROPHILS # (AUTO) 2.3 10^3/uL (1.5-6.6); NEUTROPHILS % (AUTO) 43.4 %; PLT - PLATELET COUNT 223 10^3/uL (130-450); RED BLOOD COUNT 3.77 10^6/uL (4.20-5.40); RED CELL DISTRIBUTION WIDTH 12.5 % (12.0-15.0); WHITE BLOOD COUNT 5.2 x10^3/uL (4.8-10.8)
[2023-07-15 07:49] LABS: CALCIUM 8.8 mg/dL (8.5-10.3); CREATININE 0.7 mg/dL (0.6-1.3); POTASSIUM 4.2 mmol/L (3.5-4.5)
[2023-07-15] MEDS ORDERED: SUMAtriptan 6 MG/0.5 ML VIAL SUBQ ONE (09:06)
[2023-07-15] MEDS: CIPROFLOXACIN 250 MG TABLET PO SCH (09:30)
--- NOTE | 2023-07-15 11:15 | PHARMACY PROGRESS NOTE ---
- Best Possible Medication History Admit Date and Time: 07/13/23 5170 Processed by: Pharmacy Medications reviewed in ED?: Yes Medication History completed: Yes Patient Interview: Completed As the person ultimately responsible for medication therapy, providers are able to order a medication from an existing home medication list in [facility] via the "Reconcile Routine" prior to Confirmation of that medication by system support administrator. Such practice is discouraged except when the physician, in their clinical judgment, deems that a medical need exists for a medication without regard to previous use.
--- NOTE | 2023-07-15 12:37 | Discharge Plan ---
Discharge Plan Problem Reviewed?: Yes Disposition: Home, Self Care Condition: Stable Prescriptions: Ciprofloxacin [Cipro] 500 mg PO BID 4 Days #16 tab Diet: Regular Activity Restrictions: Activity as Tolerated Shower Restrictions: No Driving Restrictions: No Health Concerns: Unfortunately you have a history of kidney infection. In August 2020 you were hospitalized with pyelonephritis and the bacteria growing was a Escherichia coli. you now presented again with another kidney infection. After being in the emergency room you opted to go home. Unfortunately the bacteria went into your bloodstream and when your blood cultures became positive, the emergency room called you back and you agreed to be admitted. It is the same bacteria as before. Plan of Treatment: 1. Treatment with this type of bacteria requires anywhere between 7 to 14 days of antibiotic therapy. However I do not find this infection to be complicated. While your kidney is infected, there are no stones and there is no obstruction that we need to worry about. As such I think you can be treated for 7 days. You will need to go home and take ciprofloxacin 250 mg tablets, 2 tablets twice a day. For 4 more days. 2. Please strongly consider establishing yourself with a primary care provider. As you get older, you will develop more medical problems. Is a natural part of aging. Sometimes these problems will require a provider to take care of you. If it becomes an emergency, there will be no provider available. So the system finds it prudent for you to be established with a designated provider to help you in the outpatient setting. This nips problems in the blood so that you do not have to come into the hospital. Care Goals: The only care goal identified is to complete therapy for an infected kidney Assessment: the patient is alert, oriented to person, place, time and situation. No Smoking: If you smoke, Please STOP! Call for help.
--- NOTE | 2023-07-15 13:42 | DISCHARGE SUMMARY ---
Discharge Summary Admit Date: 07/13/23 Discharge Date: 07/15/23 Discharging Provider: Ilana Cruz MD Primary Care Provider: No PCP Code Status: Attempt Resuscitation Condition at Discharge: Stable Discharge Disposition: 01 Home, Self Care - DIAGNOSES Discharge Diagnoses with Status of Each Condition: 1. E. coli bacteremia 2. Pyelonephritis 3. Migraine headache - HPI History of Present Illness: Patient is a 57-year-old female with no significant past medical history who presented to the ED after she was instructed to return for positive gram- negative bacteremia. Her primary complaint was flank pain due to her known pyelonephritis. Patient reportedly left AMA during a prior visit earlier in the day after being admitted. She was diagnosed with E. coli bacteremia and was initially started on IV ceftriaxone. During my evaluation she does endorse some left lower quadrant abdominal pain. She denies any fever or chills. The plan was discussed with her in detail. Her CT abdomen/pelvis results were reviewed with her. 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 Imitrex subcu was ordered and the patient declined that medication and wanted to be p.o. As such she received 125 mg dose of Imitrex. this document was made in part using voice recognition software. While efforts are made to proofread this document, sound alike and grammatical errors may occur. - ALLERGIES Allergies/Adverse Reactions: Allergies Allergy/AdvReac Type Severity Reaction Status Date / Time Iodinated Contrast Media AdvReac Respiratory Verified 07/13/23 14:52 - MEDICATIONS Home Medications: Ambulatory Orders Medication Instructions Recorded Confirmed Ciprofloxacin [Cipro] 500 mg PO BID 4 Days #16 tab 07/15/23 - LABS Result Diagrams: 07/15/23 07:20 07/15/23 07:20 - SEPSIS Current Stage of Sepsis: Sepsis Possible source of Sepsis: Genitourinary
[2023-07-15] MEDS: SUMAtriptan 25 MG TABLET PO PRN (14:41)
[2023-07-15 15:06] VITALS: BP 107/61
[2023-07-15] MEDS ORDERED: SUMAtriptan 25 MG TABLET PO PRN (15:28)
== END 2023-07-15 16:10 | disposition home or self-care (01) | DRG 872 ==
LOC: ED 14:48 → MS2 16:07
PROVIDERS: ADMIT Family Medicine; ATTEND Specialist
DX: A41.51 Sepsis due to Escherichia coli [E. coli] (principal); N12 Tubulo-interstitial nephritis, not specified as acute or chronic; G43.909 Migraine, unspecified, not intractable, without status migrainosus; B96.20 Unspecified Escherichia coli [E. coli] as the cause of diseases classified elsewhere; R10.32 Left lower quadrant pain; F17.290 Nicotine dependence, other tobacco product, uncomplicated; D64.9 Anemia, unspecified; Z63.4 Disappearance and death of family member; Z90.49 Acquired absence of other specified parts of digestive tract
CPT/HCPCS: 36415; 71045; 80048; 80053; 80306; 81001; 83605; 85025; 93005; 96361; 96374; A9270; J1170; 81003; 87086